=== PATIENT | female | born 1960 | race Caucasian/White ===

== ENCOUNTER 2017-06-19 08:35 | Outpatient (CLI) | payer MEDICARE, MEDICAID | END 2017-06-19 08:36 | disposition home or self-care (01) | LOC: BICRAD 08:35 | PROVIDERS: ATTEND Allergy & Immunology | DX: R05 Cough (principal); I51.7 Cardiomegaly | CPT/HCPCS: 71046 ==

== ENCOUNTER 2017-07-18 10:54 | Outpatient (CLI) | payer MEDICARE, MEDICAID | END 2017-07-18 10:55 | disposition home or self-care (01) | LOC: BICMAMMO 10:54 | PROVIDERS: ATTEND Family Medicine | DX: Z12.31 Encounter for screening mammogram for malignant neoplasm of breast (principal); R92.1 Mammographic calcification found on diagnostic imaging of breast; Z80.3 Family history of malignant neoplasm of breast | CPT/HCPCS: 77063; 77067 ==

== ENCOUNTER 2017-10-23 08:12 | Outpatient (CLI) | payer MEDICARE, MEDICAID | END 2017-10-23 08:13 | disposition home or self-care (01) | LOC: BICCT 08:12 | PROVIDERS: ATTEND Anesthesiology Pain Medicine | DX: M48.062 Spinal stenosis, lumbar region with neurogenic claudication (principal); M47.896 Other spondylosis, lumbar region; M99.83 Other biomechanical lesions of lumbar region | CPT/HCPCS: 72131 ==

== ENCOUNTER 2017-12-03 19:30 | Outpatient (CLI) | payer MEDICARE, MEDICAID | END 2017-12-03 19:31 | disposition home or self-care (01) | LOC: SLEEPLAB 19:30 | PROVIDERS: ATTEND Family Medicine | DX: G47.33 Obstructive sleep apnea (adult) (pediatric) (principal); J44.9 Chronic obstructive pulmonary disease, unspecified; G47.10 Hypersomnia, unspecified; I10 Essential (primary) hypertension; R06.83 Snoring; G47.61 Periodic limb movement disorder; E66.9 Obesity, unspecified; Z68.41 Body mass index [BMI] 40.0-44.9, adult | CPT/HCPCS: 95811 ==

== ENCOUNTER 2017-12-13 14:53 | Observation (INO) | payer MEDICARE, OTHER ==
[2017-12-13] MEDS ORDERED: Nitroglycerin 2% Ointment 1 INCH/1 GM Packet ONE (15:11)
[2017-12-13 15:28] LABS: #Basophils 0.1 thou/uL (0.0-0.2); #Eosinphils 0.1 thou/uL (0.0-0.7); #Lymphocytes 3.4 thou/uL (1.20-3.40); #Monocytes 0.6 thou/uL (0.11-0.59); %Basophils 0.7 % (0.0-1.0); %Eosinophils 1.8 % (0.0-10.0); %Lymphocytes 41.7 % (21.0-51.0); %Monocytes 6.9 % (0.0-10.0); Hemoglobin 13.1 g/dL (12.0-16.0); Mean Corpuscular HGB CONC 32.3 g/dL (32.0-36.0); Mean Corpuscular Hemoglobin 29.3 pg (27.0-31.0); Mean Corpuscular Volume 90.9 fL (78.0-98.0); Mean Platelet Volume 8.6 fL (7.4-10.4); Platelet Count 162 thou/uL (130-400); RBC Distribution Width 13.6 % (11.5-14.5); Red Blood Cell (RBC) Count 4.46 mill/uL (4.20-5.40); White Blood Cell (WBC) Count 8.2 thou/uL (4.8-10.8)
--- NOTE | 2017-12-13 15:32 | RAD ---
PORTABLE AP CHEST: Date: 12/13/17 HISTORY: Chest pain. COMPARISON: 04/12/14. FINDINGS: Dual lead left subclavian cardiac pacemaking device remains in place and unchanged in position. Posts urgical changes related to median sternotomy are again noted. Cardiac silhouette is magnified by proj ection, but is at the upper limits of normal to borderline enlarged. Pulmonary vasculature is within normal limits. Lungs are clear. There has been no interval change from prior study. IMPRESSION: 1. No acute cardiopulmonary process. 2. Upper limits of normal to borderline cardiomegaly. POS: [facility]
[2017-12-13 15:51] LABS: ALT (SGPT) 26 U/L (8-55); AST (SGOT) 19 U/L (5-34); Alkaline Phosphatase 47 U/L (40-150); Anion Gap 11 mmol/L (10-20); BUN (Urea Nitrogen) 11 mg/dL (9.8-20.1); Bilirubin, Total 0.3 mg/dL (0.2-1.2); CK (CPK) 201 U/L (29-168); Calc. Creatinine Clearance 0 mL/min (70-130); Calcium 9.6 mg/dL (7.8-10.44); Carbon Dioxide 23 mmol/L (22-29); Chloride 108 mmol/L (98-107); Estimated GFR-MDRD 70; Globulin 2.5 g/dL (2.4-3.5); Glucose 149 mg/dL (70-105); Lipase 17 U/L (8-78); Potassium 4.3 mmol/L (3.5-5.1); Protein, Total 6.5 g/dL (6.0-8.3); Sodium 138 mmol/L (136-145)
[2017-12-13 15:55] LABS: CKMB 3.3 ng/mL (0-6.6); Troponin I Less than 0.010 ng/mL (< 0.028)
[2017-12-13] MEDS ORDERED: Acetaminophen 500 MG TAB ONE (16:26)
--- NOTE | 2017-12-13 17:08 | PDOC.FPRHP ---
- History of Present Illness Chief Complaint: chest pain History of Present Illness: Patient is a 57YOF w/ a PMH significant for CAD s/p CABGx2 w/ pacemaker placement in 2004, HTN, DMII, and PVD who presented to the ED with a CC of chest pain that she states began yesterday morning around 0930. The patient stated that after she returned home from her morning walk, about 2 hours later she began to experience a sharp pain in the left side of her chest that she described to be 9/10 in severity and non-radiating without any specific aggravating factors. She endorse some associated clamminess but denied any SOB, N/V or diaphoresis. She stated that she took 2 sublingual nitroglycerin tabs that she had at home which relieved her pain. The pain did not return until this AM around the same time and that patient took sublingual nitroglycerin again but required 3 tabs to relieve her pain. Then, later this morning around 11:00, the pain returned once again but was not relieved with 2 sublingual nitroglycerin tablets so she decided to call EMS. The patient reported that on the way to the hospital she was given nitroglycerin spray which did relieve her pain. She was then given topical nitroglycerin once she arrived to the ED and denies any further pain since her arrival. ED Course: Patient was given 1,000mg of PO tylenol, nitro paste, and 500mL of NS. - Allergies/Adverse Reactions Allergies Allergy/AdvReac Type Severity Reaction Status Date / Time carbamazepine [From Tegretol] Allergy Intermediate Rash Verified 10/17/16 12:02 clopidogrel bisulfate Allergy Intermediate EYE Verified 10/17/16 12:02 [From Plavix] SWELLING enoxaparin sodium Allergy Intermediate EYE Verified 10/17/16 12:02 [From Lovenox] SWELLING ibuprofen Allergy Intermediate EYE Verified 10/17/16 12:02 SWELLING rivaroxaban [From Xarelto] Allergy Intermediate RECTAL Verified 10/17/16 12:02 BLEEDING Sulfa (Sulfonamide Allergy Intermediate EYE Verified 10/17/16 12:02 Antibiotics) SWELLING - Home Medications Medication Instructions Recorded Confirmed Type Fenofibrate [Tricor] 48 mg PO QAM 05/05/13 12/13/17 History Gabapentin [Neurontin] 800 mg PO BID 05/05/13 12/13/17 History Levothyroxine Sodium [Synthroid] 50 mcg PO QPM 05/05/13 12/13/17 History Lisinopril [Zestril] 40 mg PO BID 05/05/13 12/13/17 History metFORMIN HCl 1,000 mg PO BID-WM 05/05/13 12/13/17 History Atorvastatin Calcium [Lipitor] 40 mg PO HS #30 tab 05/06/13 12/13/17 Rx Esomeprazole Magnesium [NexIUM] 40 mg PO BID 04/06/14 12/13/17 History Azelastine/Fluticasone [Dymista 1 spray EA NARE BID 07/04/15 12/13/17 History Nasal [place]] Bupropion HCl [buPROPion HCl XL] 150 mg PO QAM 07/04/15 12/13/17 History Diltiazem HCl [Diltiazem 24Hr CD] 240 mg PO QPM 07/04/15 12/13/17 History Oxybutynin Chloride [Oxybutynin 15 mg PO QPM 07/04/15 12/13/17 History Chloride ER] Carvedilol [Coreg] 25 mg PO BID 10/17/16 12/13/17 History Cholecalciferol (Vitamin D3) 400 unit PO DAILY 10/17/16 12/13/17 History [Vitamin D3] - History PMHx: CAD s/p CABG x 2, HLD, HTN, PVD, GERD, DMII, ALYSSA on Cpap, vitamin D deficiency, hypothyroidism, depression, OA, morbid obesity, CKDIII, IBS PSHx: hysterectomy, , cholecystectomy, CABG x 2, R breast biopsy FHx: Mom- DM, [place], pancreatic CA Father- CVA, DM, alcoholic Brother- DM Sister- DM & from renal CA Grandfather- DM Social: Former smoker of 2-3 ppd x 30 years. Quit ~1 year ago. Denies any drug use. Admits to occasional EtOH use. Lives at home alone in [place]. - Review of Systems General: reports: weight/appetite/sleep changes, night sweats. denies: fever/ chills, fatigue Eyes: denies: eye pain, vision changes ENT: denies: nasal congestion, rhinorrhea Respiratory: reports: cough. denies: congestion, shortness of breath, exercise intolerance Cardiovascular: reports: chest pain. denies: edema Gastrointestinal: denies: nausea, vomiting, diarrhea, constipation Genitourinary: reports: other (- hematuria). denies: dysuria Skin: reports: lesions. denies: rashes, itching Musculoskeletal: denies: swelling, arthritis/arthralgias Neurological: denies: numbness, syncope, seizure Psychological: reports: depression. denies: anxiety - Vital signs BP: 145/77 HR: 65 RR: 18 Tmax: 98.5F Pox: 94% on RA Wt: 105.06kg - Physical Exam Constitutional: NAD, awake, alert and oriented, well developed HEENT: normocephalic and atraumatic, PERRLA, conjunctiva clear, no scleral icterus, grossly normal vision, grossly normal hearing, MMM, oropharynx clear Neck: supple, FROM, no LAD Chest: no-tender to palpation Heart: RRR, normal S1/S2, pulses present, no edema, other (3/6 systolic murmur) Lungs: CTAB, no respiratory distress, good air movement, no rales/rhonchi, no wheezing, no retractions Abdomen: soft, non-tender, bowel sounds present, no masses/distention Musculoskeletal: normal structure, ROM grossly normal Neurological: no focal deficit, CN II-XII intact, normal sensation Skin: good turgor, no jaundice, other (~3cm tender, palpable mass just below skin under left rib cage; no surrounding edema or erythema noted) Heme/Lymphatic: no unusual bruising or bleeding, no purpura Psychiatric: normal mood and affect, good judgment and insight, intact recent and remote memory FMR H&P: Results - Labs Result Diagrams: 12/13/17 15:22 12/13/17 15:22 Lab results: WBC 8.2 thou/uL (4.8-10.8) 12/13/17 15:22 Hgb 13.1 g/dL (12.0-16.0) 12/13/17 15:22 Hct 40.6 % (36.0-47.0) 12/13/17 15:22 MCV 90.9 fL (78.0-98.0) 12/13/17 15:22 Plt Count 162 thou/uL (130-400) 12/13/17 15:22 Neutrophils % 49.0 % (42.0-75.0) 12/13/17 15:22 Sodium 138 mmol/L (136-145) 12/13/17 15:22 Potassium 4.3 mmol/L (3.5-5.1) 12/13/17 15:22 Chloride 108 mmol/L (98-107) H 12/13/17 15:22 Carbon Dioxide 23 mmol/L (22-29) 12/13/17 15:22 BUN 11 mg/dL (9.8-20.1) 12/13/17 15:22 Creatinine 0.84 mg/dL (0.6-1.1) 12/13/17 15:22 Glucose 149 mg/dL (70-105) H 12/13/17 15:22 Calcium 9.6 mg/dL (7.8-10.44) 12/13/17 15:22 Total Bilirubin 0.3 mg/dL (0.2-1.2) 12/13/17 15:22 AST 19 U/L (5-34) 12/13/17 15:22 ALT 26 U/L (8-55) 12/13/17 15:22 Alkaline Phosphatase 47 U/L (40-150) 12/13/17 15:22 Creatine Kinase 201 U/L (29-168) H 12/13/17 15:22 CK-MB (CK-2) 3.3 ng/mL (0-6.6) 12/13/17 15:22 B-Natriuretic Peptide 346.5 pg/mL (0-100) H 12/13/17 15:22 Serum Total Protein 6.5 g/dL (6.0-8.3) 12/13/17 15:22 Albumin 4.0 g/dL (3.5-5.0) 12/13/17 15:22 Lipase 17 U/L (8-78) 12/13/17 15:22 - EKG Interpretation EKG: Paced rhythm w/ rate of 69bpm w/ occasional PVCs. - Radiology Interpretation Chest x-ray Status: image reviewed by me, report reviewed by me Additional comment: Moderate cardiomegaly w/o any significant cardiopulmonary findings FMR H&P: A/P - Problem List (1) Unstable angina Current Visit: Yes Status: Suspected (2) CAD (coronary artery disease) Current Visit: No Status: Chronic Code(s): I25.10 - ATHSCL HEART DISEASE OF [place] CORONARY ARTERY W/O ANG PCTRS Qualifiers: Coronary Disease-Associated Artery/Lesion type: bypass graft [place] vs. transplanted heart: [place] heart (3) CKD (chronic kidney disease) stage 3, GFR 30-59 ml/min Current Visit: No Status: Chronic (4) Hypertension Current Visit: No Status: Chronic Code(s): I10 - ESSENTIAL (PRIMARY) HYPERTENSION (5) Hyperlipemia Current Visit: No Status: Chronic Code(s): E78.5 - HYPERLIPIDEMIA, UNSPECIFIED (6) IBS (irritable bowel syndrome) Current Visit: No Status: Chronic (7) Obstructive sleep apnea Current Visit: No Status: Chronic Code(s): G47.33 - OBSTRUCTIVE SLEEP APNEA (ADULT) (PEDIATRIC) (8) T2DM (type 2 diabetes mellitus) Current Visit: No Status: Chronic Qualifiers: Diabetes mellitus complication status: with kidney complications Diabetes mellitus complication detail: with chronic kidney disease Chronic kidney disease stage: stage 3 (moderate) (9) Depression Current Visit: Yes Status: Acute Code(s): F32.9 - MAJOR DEPRESSIVE DISORDER , SINGLE EPISODE, UNSPECIFIED (10) Hypothyroidism Current Visit: Yes Status: Acute Code(s): E03.9 - HYPOTHYROIDISM, UNSPECIFIED (11) Peripheral vascular disease Current Visit: Yes Status: Acute Code(s): I73.9 - PERIPHERAL VASCULAR DISEASE, UNSPECIFIED (12) Vitamin D deficiency Current Visit: Yes Status: Acute Code(s): E55.9 - VITAMIN D DEFICIENCY, UNSPECIFIED (13) Morbid obesity Current Visit: Yes Status: Acute Code(s): E66.01 - MORBID (SEVERE) OBESITY DUE TO EXCESS CALORIES - Plan 57YOF w/ PMH significant for CAD s/p CABG x 2, HTN, DMII, and PVD who presented to the ED w/ a CC of typical chest pain suspicious for unstable angina. 1. typical chest pain suspicious for unstable angina vs. esophageal spasm: - pain seems to be typical based on the patient's history and the fact that it was relieved with nitro; however, patient has a h/o GERD and requires nexium BID so there is a possibility that patient was experiencing esophageal spasm as this condition is also relieved with nitro - ECG did not show any changes concerning for ACS. Initial troponin level WNL. Will continue to trend. - BNP slightly elevated from prior admission at just over 300 but no concern for CHF exacerbation based on patient's clinical status and exam. - Patient has a HEART score of 6 so will make NPO after midnight and hold BB for stress test in the AM. Will consult cardiology PRN based on these results. - Will order PO nitro for chest pain and d/c the topical nitro once patient gets to the floor. - Will continue to monitor overnight on telemetry and will obtain another ECG should patient's chest pain return. - FLP pending for the AM. Will also get a TSH and Mg. 2. CAD s/p CABG x2: - Aware. Started on 325mg ASA QD. - Will resume home meds. 3. HTN: - Aware, will resume home meds. 4. non-insulin dependent DMII: - Aware, will resume home meds. - Will order mild SSI to use PRN. - Will get ACHS accuchecks as well. 5. PVD: - Aware, will resume home statin therapy. 6. HLD: - Aware, will resume home statin therapy. 7. hypothyroidism: - Will resume home meds. - Will order an AM TSH as well. 8. ALYSSA on CPAP: - Will order RT to bring CPAP for patient for tonight. 9. vit D deficiency: - Will resume home meds. 10. IBS: - Will resume home meds. 11. Depression: - Will resume home meds. 12. CKDIII: - Aware, will resume home HTN meds. 13. GERD: - Aware, will resume home meds. FMR H&P: Upper Level - Pertinent history 57 yo WF with PMH CAD s/p 2 vessel CABG in 2004, HTN, DM2, and prior smoker. Presents with intermittent chest pain occurring at rest that is relieved by nitroglycerin for past 2 days. States pain is not associated with activity and has taken several walks without initiation of chest pain. Reports history of GERD and takes medication daily. Reports medication compliance. ER: Nitro spray en route, Nitro paste, APAP, NS 500 mL. - Pertinent findings Vitals: BP 142/87 Pulse 62, resp 18, O2 94% on RA. GEN: NAD CV: RRR 3/6 systolic murmur loudest over upper chest. Lung: CTA-B normal effort Labs: cardiac enzymes negative. BNP 350. CXR: No acute processes EKG: paced rhythm, rate 69, occasional PVC, nonspecific ST changes. - Plan Date/Time: 12/13/17 0437 I, Akira Vargas MD, have evaluated this patient and agree with findings/plan as outlined by wedding planning internship resident. Pertinent changes/additions are listed here. 1. Typical Chest Pain r/o ACS: dDx includes ACS and esophageal spasm. Check mag and TSH. Trend trops x3. NM stress test in the morning. HEART score 6. Cardiology consultation pending result. hold beta mireille and NPO after midnight. PRN nitro. 2. Elevated BNP: Does not appear clinically fluid overloaded. 3. GERD: home meds 4. DM: Home meds, ACHS accuchecks, mild SSI 5. HTN: home meds, PRNs available 6. CAD: med rec, needs to be on ASA, high intensity statin, beta mireille, and ACEi/ARB. PPx: SCD Diet: HH, CC, NPO after midnight CODE: full Dispo: Obs, tele, <2 midnights Attending Addendum - Attending Addendum Date/Time: 12/13/17 077 I personally evaluated the patient and discussed the management with Dr. Boss/ Alicia. I agree with the History, Examination, Assessment and Plan documented above with any addition or exceptions noted below. Patient with history of CAD s/p CABG, T2DM, KCD, Pacemaker placement, and Hx PE presenting with 2 days of worsening chest pain. She reports that yesterday after a walk she began having chest pain (after termination of walk), denies shortness of breath with the pain. However, her pain went away with Nitroglycerin. This morning, she experienced the same symptoms after walk, felt clammy as well, and pain relieved with Nitro again. However, this afternoon she had recurrence that did not improve with Nitro. Reports no history of similar pain. On exam, her vital signs are stable. Her labs are negative at this time. EKG shows paced rhythm but no ST segment changes. She has a 3/6 systolic murmur auscultated which she indicates is chronic. Patient to be admitted for cardiac rule out due to typical chest pain presentation mildly suspicious for unstable angina. Trend troponins, repeat EKG, monitor on tele, and plan for chemical stress test in AM. Repeat EKG and trop as needed if chest pain recurs or worsens. Nitro PRN. Continue chronic meds for her chronic conditions.
[2017-12-13 18:39] LABS: Troponin I Less than 0.010 ng/mL (< 0.028)
[2017-12-13] MEDS ORDERED: Nitroglycerin 0.4 MG TAB (25 Tab Bottle) PO PRN (19:39)
[2017-12-13] MEDS ORDERED: Dextrose 5% in Water 1,000 ML IV PRN (19:39)
[2017-12-13] MEDS ORDERED: Dextrose 50% Abboject 50 ML SYRINGE SLOW IVP PRN ×2 (19:39)
[2017-12-13] MEDS ORDERED: HumaLOG 300 UNITS/3 ML VIAL SC PRN (19:39)
[2017-12-13] MEDS ORDERED: Triamcinolone 0.1% Cream 15 GM TUBE TOP PRN (19:39)
[2017-12-13] MEDS ORDERED: traMADol HCl 50 MG TAB PO PRN (19:39)
[2017-12-13] MEDS ORDERED: Polyethylene Glycol 3350 17 GM Packet PO PRN (19:39)
[2017-12-13] MEDS: Lisinopril 20 MG TAB PO SCH (20:43)
[2017-12-13] MEDS: Oxybutynin ER 5 MG TAB PO SCH (20:43)
[2017-12-13] MEDS: Atorvastatin Calcium 40 MG TAB PO SCH (20:44)
[2017-12-13] MEDS: Gabapentin 400 MG CAP PO SCH (20:44)
[2017-12-13] MEDS: Azelastine 137 MCG/Spray 30 ML NS SCH (20:48)
[2017-12-13] MEDS ORDERED: Non-Formulary Item 1 EACH (Azelastine/Fluticasone [Dymista Nasal Spray] 1 SPRAY) EA NARE SCH (21:00)
[2017-12-13] MEDS ORDERED: Estrogens, Conjugated 30 GM TUBE VAG SCH (21:00)
[2017-12-13] MEDS ORDERED: Levothyroxine Sodium 50 MCG TAB PO SCH (21:00)
[2017-12-13] MEDS ORDERED: Fluticasone Propionate Nasal Spray 16 gm Bottle NASAL SCH (21:00)
[2017-12-13 22:17] LABS: Troponin I Less than 0.010 ng/mL (< 0.028)
[2017-12-14 05:07] LABS: Cardiac Risk 3.8 (Less than 4.5); Magnesium 1.7 mg/dL (1.6-2.6)
--- NOTE | 2017-12-14 05:32 | PDOC.FM ---
- Subjective Subjective: 57yo female with pmh of CAD s/p CABGx2, HTN, DMII, and PVD who presented with typical chest pain suspicious for unstable angina. No overnight events. Pt with no concerns. Currently chest pain free. Denies SOB, diaphoresis, nausea or palpitations. - Objective MAR Reviewed: Yes Vital Signs & Weight: Vital Signs (12 hours) Temp Pulse Resp BP Pulse Ox 12/14/17 02:45 64 18 142/75 H 94 L 12/13/17 20:44 62 170/77 H 12/13/17 20:43 170/77 H 12/13/17 19:32 97.8 F 62 18 170/77 H 94 L Weight Weight 108.998 kg Result Diagrams: 12/13/17 15:22 12/13/17 15:22 <Tamra Redd - Last Filed: 12/14/17 10:44> - Objective Vital Signs & Weight: Vital Signs (12 hours) Temp Pulse Resp BP BP Pulse Ox 12/14/17 08:37 181/79 H 12/14/17 08:06 96 16 94 L 12/14/17 07:15 98.6 F 71 16 181/79 H 93 L 12/14/17 02:45 64 18 142/75 H 94 L Weight Weight 108.998 kg I&O: 12/13/17 12/14/17 12/15/17 06:59 06:59 06:59 Output Total 1000 Balance -1000 Result Diagrams: 12/13/17 15:22 12/13/17 15:22 <Epifanio Sanches - Last Filed: 12/14/17 10:48> Phys Exam - Physical Examination Constitutional: NAD Neck: supple Respiratory: no wheezing, clear to auscultation bilateral Cardiovascular: RRR IV/ systolic murmur radiating to carotids Gastrointestinal: soft, non-tender, positive bowel sounds Musculoskeletal: no edema, pulses present Psychiatric: normal affect, A&O x 3 Skin: cap refill <2 seconds <Tamra Redd - Last Filed: 12/14/17 10:44> Dx/Plan (1) Depression Code(s): F32.9 - MAJOR DEPRESSIVE DISORDER, SINGLE EPISODE, UNSPECIFIED Status : Acute (2) Hypothyroidism Code(s): E03.9 - HYPOTHYROIDISM, UNSPECIFIED Status: Acute (3) Morbid obesity Code(s): E66.01 - MORBID (SEVERE) OBESITY DUE TO EXCESS CALORIES Status: Acute (4) Peripheral vascular disease Code(s): I73.9 - PERIPHERAL VASCULAR DISEASE, UNSPECIFIED Status: Acute (5) Vitamin D deficiency Code(s): E55.9 - VITAMIN D DEFICIENCY, UNSPECIFIED Status: Acute (6) Unstable angina Status: Suspected (7) CAD (coronary artery disease) Code(s): I25.10 - ATHSCL HEART DISEASE OF [place] CORONARY ARTERY W/O ANG PCTRS Status: Chronic Qualifiers: Coronary Disease-Associated Artery/Lesion type: bypass graft [place] vs. transplanted heart: [place] heart (8) Hyperlipemia Code(s): E78.5 - HYPERLIPIDEMIA, UNSPECIFIED Status: Chronic (9) Hypertension Code(s): I10 - ESSENTIAL (PRIMARY) HYPERTENSION Status: Chronic (10) IBS (irritable bowel syndrome) Status: Chronic (11) Obstructive sleep apnea Code(s): G47.33 - OBSTRUCTIVE SLEEP APNEA (ADULT) (PEDIATRIC) Status: Chronic (12) T2DM (type 2 diabetes mellitus) Status: Chronic Qualifiers: Diabetes mellitus complication status: with kidney complications Diabetes mellitus complication detail: with chronic kidney disease Chronic kidney disease stage: stage 3 (moderate) - Plan Plan: 57yo female with pmh of CAD s/p CABGx2, HTN, DMII, and PVD who presented with typical chest pain suspicious for unstable angina. Typical chest pain, unstable angina vs esophageal spasm - Pain seems to be typical based on the patient's history and the fact that it was relieved with nitro; however, patient has a h/o GERD and requires nexium BID so there is a possibility that patient was experiencing esophageal spasm as this condition is also relieved with nitro - ECG with no ST changes - Trops neg x3 - BNP slightly elevated from prior admission at just over 300 but no concern for CHF exacerbation based on patient's clinical status and exam. - HEART score: 6 - Holding BB for stress test this AM. May consult cardiology based on these results. - Continue PO nitro for CP - ECG if chest pain returns - Mg/TSH wnl - FLP with elevated TGs CAD s/p CABG x2 - Continue ASA 325mg - Continue home meds HTN - Continue home meds - Holding Coreg Non-insulin dependent DMII - Aware, will resume home meds - Will order mild SSI to use PRN - Will get ACHS accuchecks as well PVD - Continue home statin HLD - Continue home statin Hypothyroidism - Continue home meds - TSH wnl ALYSSA on CPAP - Continue CPAP when sleeping Vit D deficiency - Continue home meds IBS - Continue home meds Depression - Continue home meds CKDIII - Initial Cr .84 - Continue home meds GERD - Continue home meds <Tamra Redd - Last Filed: 12/14/17 10:44> Attending Addendum - Attending Addendum Date/Time: 12/14/17 1047 I personally evaluated the patient and discussed the management with Dr. Redd. I agree with the History, Examination, Assessment and Plan documented above with any addition or exceptions noted below. Patient here ruled out for ACS. Concern for cadiac type chest pain. She is awaiting stress test and further mgmt per those results. <Epifanio Sanches - Last Filed: 12/14/17 10:48>
[2017-12-14] MEDS: Levothyroxine Sodium 50 MCG TAB PO SCH (05:44)
[2017-12-14] MEDS: Mometasone/Formoterol 120 PUFF INHALER INH SCH ×2 (08:06→18:15)
[2017-12-14] MEDS: metFORMIN 500 MG TAB PO SCH ×3 (08:36→17:11)
[2017-12-14] MEDS: Aspirin 325 MG TAB PO SCH (08:36)
[2017-12-14] MEDS: Lubiprostone 24 MCG CAP PO SCH (08:36)
[2017-12-14] MEDS: Azelastine 137 MCG/Spray 30 ML NS SCH ×2 (08:37→21:21)
[2017-12-14] MEDS: Citalopram 20 MG TAB PO SCH (08:37)
[2017-12-14] MEDS: Bupropion 150 MG XL TAB PO SCH (08:37)
[2017-12-14] MEDS: Gabapentin 400 MG CAP PO SCH ×2 (08:37→21:18)
[2017-12-14] MEDS: Lisinopril 20 MG TAB PO SCH ×2 (08:37→21:18)
[2017-12-14] MEDS: Cholecalciferol (Vitamin D3) 400 UNITS TAB PO SCH (08:37)
[2017-12-14] MEDS: Fenofibrate 48 MG TAB PO SCH (08:37)
[2017-12-14] MEDS: Multivit, Therapeutic 1 TAB PO SCH (08:38)
[2017-12-14] MEDS: Loratadine 10 MG TAB PO SCH (08:38)
[2017-12-14] MEDS ORDERED: Regadenoson 0.4 MG/5 ML SYRINGE ONE (13:46)
[2017-12-14] MEDS: Oxybutynin ER 5 MG TAB PO SCH (21:18)
[2017-12-14] MEDS: Atorvastatin Calcium 40 MG TAB PO SCH (21:18)
[2017-12-14] MEDS: Carvedilol 25 MG TAB PO SCH (21:19)
--- NOTE | 2017-12-15 05:15 | PDOC.FM ---
- Subjective Subjective: 57yo female with pmh of CAD s/p CABGx2, HTN, DMII, and PVD who presented with typical chest pain suspicious for unstable angina. No overnight events. Pt with no concerns. Up taking a shower this AM. Voiding and stooling. Chest pain free. Denies SOB, abdominal pain, n/v. - Objective MAR Reviewed: Yes Vital Signs & Weight: Vital Signs (12 hours) Temp Pulse Resp BP BP Pulse Ox 12/15/17 01:52 67 18 148/80 H 98 12/14/17 21:18 177/84 H 12/14/17 21:17 73 177/84 H 12/14/17 21:05 98.1 F 71 20 177/84 H 94 L 12/14/17 18:15 93 18 98 Weight Weight 108.998 kg I&O: 12/13/17 12/14/17 12/15/17 06:59 06:59 06:59 Intake Total 1680 Output Total 1000 Balance -1000 1680 Result Diagrams: 12/13/17 15:22 12/13/17 15:22 <Tamra Redd - Last Filed: 12/15/17 06:49> - Objective Vital Signs & Weight: Vital Signs (12 hours) Temp Pulse Resp BP BP Pulse Ox 12/15/17 09:47 172/75 H 12/15/17 07:42 98.4 F 81 20 172/75 H 94 L 12/15/17 01:52 67 18 148/80 H 98 Weight Weight 108.998 kg I&O: 12/14/17 12/15/17 12/16/17 06:59 06:59 06:59 Intake Total 1680 360 Output Total 1000 Balance -1000 1680 360 Result Diagrams: 12/13/17 15:22 12/13/17 15:22 <Epifanio Sanches - Last Filed: 12/15/17 10:11> Phys Exam - Physical Examination Constitutional: NAD Respiratory: no wheezing, clear to auscultation bilateral Cardiovascular: RRR systolic murmur radiates to carotids Gastrointestinal: soft, non-tender, positive bowel sounds Musculoskeletal: no edema, pulses present Psychiatric: normal affect, A&O x 3 <Tamra Redd - Last Filed: 12/15/17 06:49> Dx/Plan (1) Depression Code(s): F32.9 - MAJOR DEPRESSIVE DISORDER, SINGLE EPISODE, UNSPECIFIED Status : Acute (2) Hypothyroidism Code(s): E03.9 - HYPOTHYROIDISM, UNSPECIFIED Status: Acute (3) Morbid obesity Code(s): E66.01 - MORBID (SEVERE) OBESITY DUE TO EXCESS CALORIES Status: Acute (4) Peripheral vascular disease Code(s): I73.9 - PERIPHERAL VASCULAR DISEASE, UNSPECIFIED Status: Acute (5) Vitamin D deficiency Code(s): E55.9 - VITAMIN D DEFICIENCY, UNSPECIFIED Status: Acute (6) Unstable angina Status: Suspected (7) CAD (coronary artery disease) Code(s): I25.10 - ATHSCL HEART DISEASE OF [place] CORONARY ARTERY W/O ANG PCTRS Status: Chronic Qualifiers: Coronary Disease-Associated Artery/Lesion type: bypass graft [place] vs. transplanted heart: [place] heart (8) Hyperlipemia Code(s): E78.5 - HYPERLIPIDEMIA, UNSPECIFIED Status: Chronic (9) Hypertension Code(s): I10 - ESSENTIAL (PRIMARY) HYPERTENSION Status: Chronic (10) IBS (irritable bowel syndrome) Status: Chronic (11) Obstructive sleep apnea Code(s): G47.33 - OBSTRUCTIVE SLEEP APNEA (ADULT) (PEDIATRIC) Status: Chronic (12) T2DM (type 2 diabetes mellitus) Status: Chronic Qualifiers: Diabetes mellitus complication status: with kidney complications Diabetes mellitus complication detail: with chronic kidney disease Chronic kidney disease stage: stage 3 (moderate) - Plan Plan: 57yo female with pmh of CAD s/p CABGx2, HTN, DMII, and PVD who presented with typical chest pain suspicious for unstable angina. Typical chest pain, unstable angina vs esophageal spasm - Pain seems to be typical based on the patient's history and the fact that it was relieved with nitro; however, patient has a h/o GERD and requires nexium BID so there is a possibility that patient was experiencing esophageal spasm as this condition is also relieved with nitro - ECG with no ST changes - Trops neg x3 - BNP slightly elevated from prior admission at just over 300 but no concern for CHF exacerbation based on patient's clinical status and exam. - HEART score: 6 - Holding BB for second day of stress test this AM. May consult cardiology based on these results. - Continue PO nitro for CP - ECG if chest pain returns - Mg/TSH wnl - FLP with elevated TGs CAD s/p CABG x2 - Continue ASA 325mg - Continue home meds HTN - Continue home meds - Holding Coreg Non-insulin dependent DMII - Aware, will resume home meds - Will order mild SSI to use PRN - Will get ACHS accuchecks as well PVD - Continue home Atorvastatin HLD - Continue home Atorvastatin Hypothyroidism - Continue home levothyroxine - TSH wnl ALYSSA on CPAP - Continue CPAP when sleeping Vit D deficiency - Continue home Vit D3 IBS - Continue home meds Depression - Continue home citalopram, wellbutrin CKDIII - Initial Cr .84 - Continue home meds GERD - Continue home meds DVT ppx: SCDs Code Status: FULL <Tamra Redd - Last Filed: 12/15/17 06:49> Attending Addendum - Attending Addendum Date/Time: 12/15/17 1011 I personally evaluated the patient and discussed the management with Dr. Rded. I agree with the History, Examination, Assessment and Plan documented above with any addition or exceptions noted below. Patient doing well. No current chest pain. Awaiting results of stress test and will likely discharge home if normal. Further mgmt pending result. <Epifanio Sanches - Last Filed: 12/15/17 10:11>
[2017-12-15] MEDS: Levothyroxine Sodium 50 MCG TAB PO SCH (06:02)
[2017-12-15] MEDS: Mometasone/Formoterol 120 PUFF INHALER INH SCH (07:38)
[2017-12-15] MEDS: Azelastine 137 MCG/Spray 30 ML NS SCH (09:46)
[2017-12-15] MEDS: Aspirin 325 MG TAB PO SCH (09:46)
[2017-12-15] MEDS: Lubiprostone 24 MCG CAP PO SCH (09:46)
[2017-12-15] MEDS: metFORMIN 500 MG TAB PO SCH (09:46)
[2017-12-15] MEDS: Loratadine 10 MG TAB PO SCH (09:47)
[2017-12-15] MEDS: Bupropion 150 MG XL TAB PO SCH (09:47)
[2017-12-15] MEDS: Carvedilol 25 MG TAB PO SCH (09:47)
[2017-12-15] MEDS: Multivit, Therapeutic 1 TAB PO SCH (09:47)
[2017-12-15] MEDS: Lisinopril 20 MG TAB PO SCH (09:47)
[2017-12-15] MEDS: Cholecalciferol (Vitamin D3) 400 UNITS TAB PO SCH (09:47)
[2017-12-15] MEDS: Gabapentin 400 MG CAP PO SCH (09:48)
[2017-12-15] MEDS: Fenofibrate 48 MG TAB PO SCH (09:48)
[2017-12-15] MEDS: Citalopram 20 MG TAB PO SCH (09:48)
--- NOTE | 2017-12-15 10:06 | NM ---
NUCLEAR MEDICINE CARDIAC STRESS WITH EJECTION FRACTION AND WALL MOTION: HISTORY: Chest pain. Hypertension and coronary artery disease. COMPARISON: 05/06/13. TECHNIQUE: The patient was administered 31 mCi of technetium-99m sestamibi for rest imaging and 27.4 mCi of te chnetium-99m sestamibi for stress imaging. Cardiac gating performed. FINDINGS: There appears to be a fixed defect involving the inferior wall from the mid portion to the base of th e left ventricle. This distribution is similar to the previous examination. There does not appear to be any reversibility. There is global hypokinesis. Ejection fraction is 48%. Previously, the ejection fraction was 35%. IMPRESSION: 1. Fixed defect in the inferior wall. 2. No evidence of reversibility. 3. Global hypokinesis with ejection fraction of 48%. POS: [facility]
[2017-12-15 11:55] VITALS: BP 165/74; TEMP 98.3
--- NOTE | 2017-12-16 04:48 | DIS-2 ---
DATE OF ADMISSION: 12/13/2017 DATE OF DISCHARGE: 12/15/2017 RESIDENT: Tamra Redd M.D., PGY1. ADMITTING ATTENDING: Epifanio Sanches M.D. DISCHARGE ATTENDING: Epifanio Sanches M.D. CONSULTATIONS: None. PROCEDURES: 1. Chest x-ray showing no acute cardiopulmonary process, upper limits of normal to borderline cardiomegaly. 2. Nuclear stress test showing fixed deficit in the inferior wall. No evidence of reversibility. Global hypokinesis with ejection fraction of 48%. PRIMARY DIAGNOSIS: Typical chest pain. SECONDARY DIAGNOSES: 1. Coronary artery disease status post coronary artery bypass graft x2. 2. Hypertension. 3. Noninsulin dependent diabetes type 2. 4. Peripheral vascular disease. 5. Hyperlipidemia. 6. Hypothyroidism. 7. Obstructive sleep apnea, on CPAP. 8. Vitamin D deficiency. 9. Irritable bowel syndrome. 10. Depression. 11. Chronic kidney disease stage 3. 12. Gastroesophageal reflux disease. DISCHARGE MEDICATIONS: 1. Albuterol sulfate 2 puffs q.4 hours p.r.n. 2. Aspirin 325 mg daily. 3. Atorvastatin 40 mg at bedtime. 4. Dymista nasal spray 1 spray each naris b.i.d. 5. Bupropion 150 mg q.a.m. 6. Carvedilol 25 mg b.i.d. 7. Vitamin D3 of 400 units p.o. daily. 8. Citalopram 20 mg daily. 9. Diltiazem 240 mg at bedtime. 10. Nexium 40 mg b.i.d. 11. Premarin cream 1 gram vaginal as directed 1-3 times per week. 12. TriCor 48 mg p.o. q.a.m. 13. Gabapentin 800 mg b.i.d. 14. Levothyroxine 50 mcg at bedtime. 15. Lisinopril 40 mg daily. 16. Claritin 10 mg daily. 17. Metformin 1000 mg b.i.d. 18. Mometasone/formoterol two puffs b.i.d. 19. Multivitamin 1 tab daily. 20. Nitroglycerin 0.4 mg tablet sublingual every 5 minutes p.r.n. 21. Oxybutynin 15 mg at bedtime. 22. Pilocarpine hydrochloride 5 mg b.i.d. 23. MiraLax 17 grams p.o. daily. DISCONTINUED MEDICATIONS: None. HISTORY OF PRESENT ILLNESS AND HOSPITAL COURSE: Ms. Flores is a 57-year-old female with a past medical history significant for CAD status post CABG x2, pacemaker placement in 2004, hypertension, type 2 diabetes, and PVD, presenting with chest pain that started the morning prior. There were multiple episodes associated with clamminess and resolved with nitroglycerin, but prior to presentation to the ED, pain was not relieved with nitroglycerin. She received nitroglycerin spray by EMS and was chest pain free on arrival to the ED. Troponins were negative x3. EKG showed no ST segment changes. Her BNP was slightly elevated prior to her last admission, but we were not concerned about congestive heart failure exacerbation based on patient's clinical exam. Her fasting lipid panel was notable for elevated triglycerides. She underwent a 2- day stress test that showed no reversible changes. Of note, her stress test did show evidence of her [place] prior revealing fixed deficit in the inferior wall and global hypokinesis with an EF of 48%. For her type 2 diabetes, was managed with mild sliding scale insulin. It was noted that her fasting blood sugars were elevated in the mid to high 200s. This can be further managed as an outpatient. For her chronic conditions of CAD, hypertension, PVD, hyperlipidemia, hypothyroidism, ALYSSA, vitamin D deficiency, IBS, depression, chronic kidney disease 3, and GERD, these were stable on her home medications throughout the course of her stay. DISPOSITION: Stable. DISCHARGE INSTRUCTIONS: 1. Location: Home. 2. Diet: Heart healthy, consistent diabetic diet. 3. Activity: No restrictions. 4. Followup: Follow up with PCP within 3 days and inside phone sales within 2-3 weeks. DEE DEE
--- NOTE | 2017-12-20 09:28 | STRESS ---
Acquisition Time: 2017-12-14 09:24:56 Total Exercise Time: 00:01:00 Test Indications: CHEST PAIN Medications: Protocol: LEXISCAN Max HR: 078 BPM 48% of Pred: 162 BPM Max BP: 140/070 mmHG Max Work Load: 1.0 METS THE PATIENT WAS INJECTED WITH LEXISCAN. SHE DID NOT DEVELOP CHEST PAIN. THERE WAS NO SIGNIFICANT ST DEPRESSION. AWAIT NUCLEAR IMAGES FOR DEFINITIVE DIAGNOSIS. Confirmed by RUSSELL PARADA ([id number]), rewrite editor NATASHA TOMPKINS ([id number]) on 12/20/2017 9:28:10 AM Referred By: Confirmed By:RUSSELL PARADA
--- NOTE | 2017-12-21 11:31 | EKG ---
Test Reason : CHESTPAIN Blood Pressure : / mmHG Vent. Rate : 069 BPM Atrial Rate : 053 BPM P-R Int : 000 ms QRS Dur : 158 ms QT Int : 490 ms P-R-T Axes : 000 -43 191 degrees QTc Int : 525 ms Demand pacemaker; interpretation is based on intrinsic rhythm Wide QRS rhythm with occasional Premature ventricular complexes Left axis deviation Left ventricular hypertrophy with QRS widening and repolarization abnormality Inferior infarct , age undetermined Abnormal ECG Confirmed by AMANDEEP MOULTON, CHINMAY ([id number]), acquisitions editor ABDIRIZAK NOBLE ([id number]) on 12/21/2017 11:30:52 AM Referred By: Confirmed By:CHINMAY BERNSTEIN MD
== END 2017-12-15 12:24 | disposition home or self-care (01) ==
LOC: ERS 14:53 → 2SW 16:14
PROVIDERS: ADMIT Student in an Organized Health Care Education/Training Program; ATTEND Student in an Organized Health Care Education/Training Program
DX: R07.9 Chest pain, unspecified (principal); I25.10 Atherosclerotic heart disease of native coronary artery without angina pectoris; E11.51 Type 2 diabetes mellitus with diabetic peripheral angiopathy without gangrene; E78.5 Hyperlipidemia, unspecified; E03.9 Hypothyroidism, unspecified; G47.33 Obstructive sleep apnea (adult) (pediatric); E55.9 Vitamin D deficiency, unspecified; N18.3 Chronic kidney disease, stage 3 (moderate); E11.22 Type 2 diabetes mellitus with diabetic chronic kidney disease; I12.9 Hypertensive chronic kidney disease with stage 1 through stage 4 chronic kidney disease, or unspecified chronic kidney disease; K21.9 Gastro-esophageal reflux disease without esophagitis; F32.9 Major depressive disorder, single episode, unspecified; E66.01 Morbid (severe) obesity due to excess calories; Z95.5 Presence of coronary angioplasty implant and graft; Z79.82 Long term (current) use of aspirin; Z79.899 Other long term (current) drug therapy; Z79.84 Long term (current) use of oral hypoglycemic drugs; Z68.41 Body mass index [BMI] 40.0-44.9, adult
CPT/HCPCS: 71045; 78452; 80053; 80061; 82550; 82553; 82962 ×3; 83690; 83735; 83880; 84443; 84484 ×2; 85025; 93005; 93017; 94640 ×2; 94664; 94760; 96360; 99285; A9500; G0378; 36415; 36416; J2785

== ENCOUNTER 2018-02-08 10:16 | Emergency (ER) | payer MEDICARE, OTHER ==
[2018-02-08] MEDS ORDERED: Ketorolac Tromethamine 60 MG/2 ML VIAL ONE (10:35)
== END 2018-02-08 11:20 | disposition home or self-care (01) ==
LOC: ERS 10:16
DX: M54.5 Low back pain (principal); E11.9 Type 2 diabetes mellitus without complications; E78.5 Hyperlipidemia, unspecified; I10 Essential (primary) hypertension; E66.9 Obesity, unspecified; F32.9 Major depressive disorder, single episode, unspecified; F17.210 Nicotine dependence, cigarettes, uncomplicated
CPT/HCPCS: 96372; J1885

== ENCOUNTER 2018-05-12 10:11 | Outpatient (CLI) | payer MEDICARE, OTHER ==
--- NOTE | 2018-05-12 12:10 | CT ---
TEMPORAL BONE CT: History: Bilateral hearing loss. Technique: Axial images were obtained with coronal reconstructed images performed. FINDINGS: The visualized portions of the sinuses are well aerated. The mastoid air cells are well aerated. The external auditory canals are unremarkable. Temporal bones: The right and left middle ears, including the hypo, epi, and mesotympanum are well ae rated. Middle ear ossicles are intact. No definite evidence of erosive changes or soft tissues lesions. No definite evidence of cholesteatom a seen. The right and left vestibule, semicircular canals and cochlea bilaterally are unremarkable. Internal auditory canals are unremarkable. IMPRESSION: Normal bilateral temporal bone CT. POS: [facility]
== END 2018-05-12 10:12 | disposition home or self-care (01) ==
LOC: BICCT 10:11
PROVIDERS: ATTEND Specialist
DX: H90.5 Unspecified sensorineural hearing loss (principal)
CPT/HCPCS: 70480

== ENCOUNTER 2018-07-25 12:15 | Outpatient (CLI) | payer MEDICARE, MEDICAID ==
[2018-07-25 13:35] LABS: Hemoglobin 11.1 g/dL (12.0-16.0)
[2018-07-25 13:52] LABS: ALT (SGPT) 22 U/L (8-55); AST (SGOT) 16 U/L (5-34); Albumin 4.2 g/dL (3.5-5.0); Alkaline Phosphatase 55 U/L (40-150); Anion Gap 13 mmol/L (10-20); BUN (Urea Nitrogen) 10 mg/dL (9.8-20.1); Bilirubin, Total 0.7 mg/dL (0.2-1.2); Calc. Creatinine Clearance 0 mL/min (70-130); Calcium 10.1 mg/dL (7.8-10.44); Carbon Dioxide 25 mmol/L (22-29); Chloride 108 mmol/L (98-107); Estimated GFR-MDRD 78; Globulin 2.7 g/dL (2.4-3.5); Glucose 100 mg/dL (70-105); Potassium 4.2 mmol/L (3.5-5.1); Protein, Total 6.9 g/dL (6.0-8.3); Sodium 142 mmol/L (136-145)
== END 2018-07-25 12:16 | disposition home or self-care (01) ==
LOC: LABBT 12:15
PROVIDERS: ATTEND Internal Medicine Cardiovascular Disease
DX: Z01.812 Encounter for preprocedural laboratory examination (principal)
CPT/HCPCS: 80053; 85014; 85018

== ENCOUNTER 2018-08-11 05:42 | Day surgery (SDC) | payer MEDICARE, MEDICAID ==
[2018-07-25 13:56] VITALS: BMI 39.8
[2018-08-11] MEDS ORDERED: Midazolam HCl 2 mg/2 ml Vial ONE (07:25)
[2018-08-11] MEDS ORDERED: Fentanyl 100 MCG/2 ML VIAL ONE (07:26)
[2018-08-11] MEDS ORDERED: Iopamidol 370 76% 50 ML VIAL FS ONE (11:48)
[2018-08-11] MEDS ORDERED: Iopamidol 370 76% 100 ML VIAL ONE (11:48)
== END 2018-08-11 16:03 | disposition home or self-care (01) ==
LOC: CCL 05:42
PROVIDERS: ATTEND Internal Medicine Cardiovascular Disease
PROC: 4A023N7 Measurement of Cardiac Sampling and Pressure, Left Heart, Percutaneous Approach (ICD-10-PCS; principal; 2018-08-11)
PROC: B2111ZZ Fluoroscopy of Multiple Coronary Arteries using Low Osmolar Contrast (ICD-10-PCS; 2018-08-11)
DX: I25.10 Atherosclerotic heart disease of native coronary artery without angina pectoris (principal); I25.2 Old myocardial infarction; I35.0 Nonrheumatic aortic (valve) stenosis; I10 Essential (primary) hypertension; E11.9 Type 2 diabetes mellitus without complications; G47.33 Obstructive sleep apnea (adult) (pediatric); E03.9 Hypothyroidism, unspecified; M19.90 Unspecified osteoarthritis, unspecified site; K21.9 Gastro-esophageal reflux disease without esophagitis; F32.9 Major depressive disorder, single episode, unspecified; I49.5 Sick sinus syndrome; E66.9 Obesity, unspecified; Z68.39 Body mass index [BMI] 39.0-39.9, adult; Z87.891 Personal history of nicotine dependence; Z86.73 Personal history of transient ischemic attack (TIA), and cerebral infarction without residual deficits; Z79.82 Long term (current) use of aspirin; Z79.84 Long term (current) use of oral hypoglycemic drugs; Z79.899 Other long term (current) drug therapy; Z88.2 Allergy status to sulfonamides; Z88.8 Allergy status to other drugs, medicaments and biological substances; Z95.0 Presence of cardiac pacemaker; Z95.1 Presence of aortocoronary bypass graft
CPT/HCPCS: 76942; 93461; 93561; 99152; 99153; C1769; J1644; J2250; J3010; Q9967

== ENCOUNTER 2018-09-08 07:14 | Outpatient (CLI) | payer MEDICARE, MEDICAID ==
--- NOTE | 2018-09-08 09:25 | CT ---
CT Chest W WO Con History: Aortic valve stenosis Comparison: CT angiogram chest 2015 Findings: On the noncontrast portion examination there is no intramural hematoma. Prior CABG. Dense c oronary artery calcifications. Similar appearance of the bilateral hilar fullness likely sequelae of distention of the perivenous pe ricardial sleeves. Dense calcifications of all 3 cusps of the aortic valve. Size as follows: Aortic valve: 2.4 cm. Sinuses of Valsalva: 3 cm sinotubular junction: 2.4 cm Midascending aorta: 3.5 cm Transverse aorta: 2.8 cm Proximal descending thoracic aorta: 2.7 cm Diaphragmatic hiatus: 2.4 cm No intimal flap. Left atrial appendage is patient. Mild thinning of the left ventricular apex. Mild peripheral pleural scarring. 4 mm nodule within the medial basal left lower lobe. This nodule is unchanged. No pneumothorax. No effusion. No acute osseous abnormality. Impression: 1. No aortic aneurysm. Size as above. 2. Patent left atrial appendage. 3. Mildly dilated pulmonary trunk measuring 3.5 cm suggesting pulmonary arterial hypertension. 4. Mild fluid distention of the perivenous pericardial recesses. 5. Dense calcifications of the aortic valve.
[2018-09-08] MEDS ORDERED: ISOVUE-370 76%-LOCM 1 ML ONE (09:51)
== END 2018-09-08 07:15 | disposition home or self-care (01) ==
LOC: BICCT 07:14
PROVIDERS: ATTEND Thoracic Surgery (Cardiothoracic Vascular Surgery)
DX: I35.0 Nonrheumatic aortic (valve) stenosis (principal); I25.10 Atherosclerotic heart disease of native coronary artery without angina pectoris
CPT/HCPCS: 71270

== ENCOUNTER 2018-09-09 07:36 | Outpatient (CLI) | payer MEDICARE, MEDICAID ==
--- NOTE | 2018-09-12 21:10 | EKG ---
Test Reason : Blood Pressure : / mmHG Vent. Rate : 067 BPM Atrial Rate : 067 BPM P-R Int : 180 ms QRS Dur : 126 ms QT Int : 416 ms P-R-T Axes : 066 044 128 degrees QTc Int : 439 ms Electronic atrial pacemaker Non-specific intra-ventricular conduction block Cannot rule out Anterior infarct , age undetermined Abnormal ECG When compared with ECG of 13-DEC-2017 15:05, Electronic atrial pacemaker has replaced Wide QRS rhythm Confirmed by Cory SOTO ([id number]) on 09/12/2018 9:10:11 PM Referred By: TERRA Confirmed By:Cory SOTO
== END 2018-09-09 07:37 | disposition home or self-care (01) ==
LOC: LABBT 07:36
PROVIDERS: ATTEND Thoracic Surgery (Cardiothoracic Vascular Surgery)
DX: Z01.818 Encounter for other preprocedural examination (principal); I35.0 Nonrheumatic aortic (valve) stenosis
CPT/HCPCS: 93005; 93010

== ENCOUNTER 2018-09-09 09:15 | Inpatient (IN) | payer MEDICARE, MEDICAID ==
[2018-09-09 10:16] LABS: Hemoglobin 11.7 g/dL (12.0-16.0); Mean Corpuscular HGB CONC 30.9 g/dL (32.0-36.0); Mean Corpuscular Hemoglobin 24.4 pg (27.0-31.0); Mean Corpuscular Volume 79.2 fL (78.0-98.0); Mean Platelet Volume 9.8 fL (7.4-10.4); Platelet Count 171 thou/uL (130-400); White Blood Cell (WBC) Count 7.2 thou/uL (4.8-10.8)
[2018-09-09 10:22] LABS: PTT 31.9 SEC (22.9-36.1); Prothrombin Time 13.5 SEC (12.0-14.7)
[2018-09-09 10:42] LABS: Anion Gap 11 mmol/L (10-20); BUN (Urea Nitrogen) 12 mg/dL (9.8-20.1); Calc. Creatinine Clearance 0 mL/min (70-130); Calcium 9.9 mg/dL (7.8-10.44); Carbon Dioxide 27 mmol/L (22-29); Chloride 105 mmol/L (98-107); Estimated GFR-MDRD 81; Glucose 167 mg/dL (70-105); Potassium 4.1 mmol/L (3.5-5.1); Sodium 139 mmol/L (136-145)
[2018-09-10] MEDS ORDERED: Vancomycin HCl 1.5 GM in Sodium Chloride 0.9% 250 ML 300 ML IVPB SCH (06:30)
[2018-09-10] MEDS ORDERED: CEFAZOLIN 2 GM in Premix Bag 1 BAG IVPB SCH (06:30)
[2018-09-10] MEDS ORDERED: Heparin 10,000 UNITS/1 ML VIAL 30,000 UNITS in Sodium Chloride 0.9% 1,000 ML FS SCH (06:45)
[2018-09-10] MEDS ORDERED: Bupivacaine HCl 0.5%/Epinephrine 1:200,000/PF 30 ml Vial ONE (06:45)
[2018-09-10] MEDS ORDERED: Dexamethasone 4 mg/ml Vial ONE (06:45)
[2018-09-10] MEDS ORDERED: Albumin 5% 500 ML ONE (06:45)
[2018-09-10] MEDS ORDERED: Vecuronium 10 MG VIAL ONE ×2 (06:50→13:49)
[2018-09-10] MEDS ORDERED: Midazolam HCl 5 mg/5 ml Vial ONE (06:50)
[2018-09-10] MEDS ORDERED: Dexmedetomidine 200 MCG/2 ML VIAL ONE (06:50)
[2018-09-10] MEDS ORDERED: Norepinephrine 4 MG/4 ML VIAL ONE (06:50)
[2018-09-10] MEDS ORDERED: Fentanyl 250 MCG/5 ML VIAL ONE (06:50)
[2018-09-10] MEDS ORDERED: Chloroprocaine HCl/PF 20 ML VIAL ONE (06:51)
[2018-09-10] MEDS ORDERED: Milrinone 10 MG/10 ML VIAL ONE (06:51)
[2018-09-10] MEDS ORDERED: Midazolam HCl 2 mg/2 ml Vial ONE (07:12)
[2018-09-10] MEDS ORDERED: Insulin Regular 300 UNITS/3 ML VIAL ONE (08:23)
[2018-09-10] MEDS ORDERED: Ondansetron PF 4 MG/2 ML Vial IVP PRN (11:45)
[2018-09-10] MEDS ORDERED: D5 1/2 NS w/20 mEq KCL 1,000 ML IV SCH (11:45)
[2018-09-10] MEDS ORDERED: Magnesium 2 GM/50 ML 2 GM in Premix Bag 1 BAG IVPB SCH (11:45)
[2018-09-10] MEDS ORDERED: Acetaminophen 325 MG TAB PO PRN (11:45)
[2018-09-10] MEDS ORDERED: HYDROcodone/Acetaminophen 5/325 mg Tablet PO PRN (11:45)
[2018-09-10] MEDS ORDERED: Promethazine HCl 25 MG/ML VIAL IM PRN (11:45)
[2018-09-10] MEDS ORDERED: Hetastarch 6% 500 ML 500 ML IVPB PRN (11:45)
[2018-09-10] MEDS ORDERED: Bisacodyl 5 MG TAB PO PRN (11:45)
[2018-09-10] MEDS ORDERED: Potassium Chloride 20 MEQ/100 ML PREMIX BAG IVPB PRN (11:45)
[2018-09-10] MEDS ORDERED: Mag-Al 1200 mg/1200 mg/30 ML UDCUP PO PRN (11:45)
[2018-09-10] MEDS ORDERED: Post-Op Insulin Drip Protocol IVPB ONE (11:45)
[2018-09-10] MEDS ORDERED: Bisacodyl 10 MG SUPP PR PRN (11:45)
[2018-09-10] MEDS ORDERED: Nitroglycerin 50 MG/250 ML BOT 250 ML IVPB PRN (11:45)
[2018-09-10] MEDS ORDERED: Guaifenesin DM 100-10/5 ML UDCUP PO PRN (11:45)
[2018-09-10] MEDS ORDERED: Fentanyl 100 MCG/2 ML VIAL SLOW IVP PRN (11:45)
[2018-09-10] MEDS ORDERED: Norepinephrine 8 MG/0.9% NS 250 ML IVPB PRN (11:45)
[2018-09-10] MEDS ORDERED: D5 1/2 NS w/20 mEq KCL 1,000 ML ONE (11:54)
[2018-09-10] MEDS ORDERED: Morphine 4 MG/ML VIAL ONE (12:08)
[2018-09-10 12:23] LABS: Actual Bicarbonate (HCO3a) 23.5 mEq/L (22-28); Base Excess (BEa) -2.8 mEq/L (-2.0 to +3.0); CO2 Tension 47.5 mmHg (35.0-45.0); Calcium, Ionized 1.08 mmol/L (1.12-1.30); Carboxyhemoglobin (COHb) 1.5 gm% (0.0-3.0); Hemoglobin (Hb) 10.1 g/dL (12.0-16.0); Potassium - ABG Lab 4.01 mmol/L (3.70-5.30); pH, Arterial 7.31 (7.35-7.45)
[2018-09-10 12:24] LABS: ALV-art Gradient 254.425 (0-20); Puncture Site ALINE
[2018-09-10 12:25] LABS: Hemoglobin 9.5 g/dL (12.0-16.0); Mean Corpuscular HGB CONC 30.8 g/dL (32.0-36.0); Mean Corpuscular Hemoglobin 24.5 pg (27.0-31.0); Mean Corpuscular Volume 79.7 fL (78.0-98.0); Mean Platelet Volume 9.4 fL (7.4-10.4); Platelet Count 158 thou/uL (130-400); RBC Distribution Width 15.7 % (11.5-14.5); Red Blood Cell (RBC) Count 3.89 mill/uL (4.20-5.40); White Blood Cell (WBC) Count 20.6 thou/uL (4.8-10.8)
[2018-09-10] MEDS ORDERED: HUMULIN R 100 UNITS in Sodium Chloride 0.9% 100 ML IVPB SCH (12:28)
[2018-09-10] MEDS ORDERED: Dextrose 50% Abboject 50 ML SYRINGE SLOW IVP PRN (12:28)
[2018-09-10] MEDS ORDERED: Insulin Regular 300 UNITS/3 ML VIAL SC PRN (12:28)
[2018-09-10] MEDS ORDERED: Dextrose 5% in Water 1,000 ML IV PRN (12:28)
[2018-09-10 12:32] LABS: INR-International Normal Ratio 1.3; Prothrombin Time 16.7 SEC (12.0-14.7)
--- NOTE | 2018-09-10 12:32 | RAD ---
EXAM: CHEST ONE VIEW: 09/10/18 HISTORY: Postop open heart. Evidence for postop open heart and valvular replacement changes. Endotracheal tube and right subclavi an catheter is in place. Monitor leads overlie the chest. Mild prominence of the mediastinum and card iac silhouette since prior study of 12/13/17. No confluent pneumonia or pneumothorax. IMPRESSION: Minimal cardiomegaly with fullness of the mediastinum following recent postoperative changes. No pneu mothorax or other acute process. Continued short term follow-up. POS: [facility]
[2018-09-10 12:33] LABS: PTT 44.4 SEC (22.9-36.1)
[2018-09-10] MEDS ORDERED: Norepinephrine 8 MG in Dextrose 5% in Water 242 ML IVPB PRN (12:43)
[2018-09-10 12:48] LABS: Anion Gap 10 mmol/L (10-20); BUN (Urea Nitrogen) 13 mg/dL (9.8-20.1); Calc. Creatinine Clearance 164 mL/min (70-130); Calcium 7.6 mg/dL (7.8-10.44); Carbon Dioxide 24 mmol/L (22-29); Chloride 111 mmol/L (98-107); Estimated GFR-MDRD Greater than 90; Glucose 129 mg/dL (70-105); Potassium 4.1 mmol/L (3.5-5.1); Sodium 141 mmol/L (136-145)
[2018-09-10 13:06] LABS: Band 11 % (5-11); Hypochromia SLIGHT = 6-15 cells (100X) (0-5/hpf); Lymphocytes 21 % (21-51); MDiff Complete? YES; Metamyelocyte 1 % (0-0); Microcytosis SLIGHT = 6-15 cells (100X) (0-5/hpf); Monocytes 3 % (0-10); Neutrophil 64 % (42-75); Ovalocytes SLIGHT = 2-5 cells (100X) (0-1/hpf); Polychromasia SLIGHT = 2-3 cells (100X) (0-2/hpf)
[2018-09-10] MEDS ORDERED: Nitroglycerin 50 MG/250 ML BOT ONE (13:49)
[2018-09-10] MEDS ORDERED: Sodium Bicarb 50 MEQ/50 ML VIAL ONE (13:49)
[2018-09-10] MEDS ORDERED: Aminocaproic Acid 5 GM/20 ML VIAL ONE (13:49)
[2018-09-10] MEDS ORDERED: Glycopyrrolate 0.2 MG/ML 5 ML SYRINGE ONE (13:49)
[2018-09-10] MEDS ORDERED: Potassium Chloride 60 MEQ/30 ML VIAL ONE (13:49)
[2018-09-10] MEDS ORDERED: Thrombin 5000 UNITS/5 ML VIAL ONE (13:49)
[2018-09-10] MEDS ORDERED: Calcium Chloride 1 GM/10 ML Abboject SYRINGE ONE (13:49)
[2018-09-10] MEDS ORDERED: Protamine Sulfate 250 MG/25 ML VIAL ONE (13:49)
[2018-09-10] MEDS ORDERED: Heparin 30,000 units/30 ml VIAL ONE (13:49)
[2018-09-10] MEDS ORDERED: Lidocaine 2% PF 100 mg/5 ml Syringe ONE (13:49)
[2018-09-10] MEDS ORDERED: Magnesium 5 GM/10 ML VIAL ONE (13:49)
[2018-09-10] MEDS ORDERED: Mannitol 12.5 GM/50 ML ONE (13:49)
[2018-09-10] MEDS ORDERED: PROPOFOL 200 MG/20 ML VIAL ONE (13:49)
[2018-09-10] MEDS: CEFAZOLIN 2 GM in Premix Bag 1 BAG IVPB SCH ×2 (14:04→22:03)
[2018-09-10 15:03] LABS: Actual Bicarbonate (HCO3a) 24.7 mEq/L (22-28); Base Excess (BEa) -1.3 mEq/L (-2.0 to +3.0); CO2 Tension 47.7 mmHg (35.0-45.0); Calcium, Ionized 1.04 mmol/L (1.12-1.30); Hemoglobin (Hb) 8.8 g/dL (12.0-16.0); O2 Tension (PaO2) 78.8 mmHg (80.0-100.0); Potassium - ABG Lab 3.93 mmol/L (3.70-5.30); pH, Arterial 7.33 (7.35-7.45)
[2018-09-10] MEDS: Fentanyl 100 MCG/2 ML VIAL SLOW IVP PRN (16:00)
[2018-09-10 16:04] LABS: Puncture Site ALINE
[2018-09-10 16:05] LABS: ALV-art Gradient 146.775 (0-20)
[2018-09-10] MEDS: HYDROcodone/Acetaminophen 5/325 mg Tablet PO PRN ×2 (17:31→21:30)
--- NOTE | 2018-09-10 17:36 | OP ---
DATE OF PROCEDURE: 09/10/2018 PREOPERATIVE DIAGNOSES: 1. Coronary artery disease, status post coronary artery bypass grafting x2 utilizing saphenous vein graft to OM and distal right coronary. 2. Hypertension. 3. Bipolar disorder. 4. Morbid obesity. 5. Aortic stenosis. POSTOPERATIVE DIAGNOSES: 1. Coronary artery disease, status post coronary artery bypass grafting x2 utilizing saphenous vein graft to OM and distal right coronary. 2. Hypertension. 3. Bipolar disorder. 4. Morbid obesity. 5. Aortic stenosis. PROCEDURES PERFORMED: 1. Redo sternotomy. 2. Aortic valve replacement with #21 Magna bioprosthetic valve. CO-SURGEON: Evans Moise MD ANESTHESIA: General endotracheal. ANESTHESIOLOGIST: Claudy Singh MD. PUMP TIME: 83 minutes. CROSS-CLAMP TIME: 50 minutes. LOW CORE TEMPERATURE: 34.1 degrees Celsius. SUPERVISING NURSE: Bernadette Bhardwaj. DRAINS: 24-Mongolian chest tubes x2. DRIPS: None. TRANSFUSIONS: None. DESCRIPTION OF PROCEDURE: After consent was obtained, the patient was brought to the operating room, placed in supine position on the operating table. Appropriate central line was placed and general endotracheal anesthesia was induced. Chest and legs were prepped and draped in usual sterile fashion. The previous sternal incision was opened. Wires were divided. Midline was marked with electrocautery. Sternum was re-divided with oscillating saw. Wires were then removed. The posterior table of the sternum was then divided with heavy-curved George scissors. Posterior table of the sternum was freed from the surrounding tissues. Alvaro retractor was placed. Tissue over the innominate vein was divided, so no tension was placed on the innominate vein. Dissection was begun at the level of the diaphragm. Once the diaphragm was localized, the diaphragm was followed to the right until we encounter pericardium and the right-sided saphenous vein graft. This was followed all the way around the heart to the aorta. The aorta was exposed all the way up distal to the previous cannulation site. The graft to the right side was mobilized off the surface of the atrium. The aortic and atrial cannulation sutures were placed. The patient was systemically heparinized. After adequate heparinization, aortic and atrial cannulation were performed. The patient was placed on cardiopulmonary bypass. The remainder of the dissection of the aorta was completed, allowing for cross-clamping of the aorta. There was sufficient room proximal to the graft proximal anastomoses to allow for aortotomy. The aortic cross-clamp was applied, and antegrade sanguineous cardioplegic arrest was obtained. 1 L of antegrade cold [place] cardioplegia was given. Topical cold solution was used. CO2 was then infused in the pericardial well for the remainder of the procedure A transverse hockey stick aortotomy was performed. The valve was inspected. It was a 3-leaflet valve that was heavily calcified at the hinge points. There was also calcium on the anterior wall of the aorta. The aortic valve was debrided and the anulus was decalcified. The calcification on the anterior wall of the aorta which was exophytic was removed. The valve measured as a 21 Magna. The valve was brought into the operative field and washed. Pledgeted 2-0 Ethibond sutures were placed in the anulus. The suture was then passed through the sewing ring of the valve, and the valve was seated. Valve was secured with Cor-Knots. Valve was seated nicely. The aortotomy was then closed in a two-layer running fashion with pledgeted 4-0 prolene suture. De-airing maneuvers were then performed both to the aortic vent and a left-sided superior pulmonary vein vent. After adequate de-airing had been performed, cross-clamp was removed with the patient in Trendelenburg position. The aortic suture line was hemostatic. The patient was then warmed and weaned from cardiopulmonary bypass. After resumption of sinus rhythm, good hemodynamics, temperature greater than 36.5, bypass was discontinued. Transfusion was given. Decannulation was performed and pursestring suture secured. Protamine was administered. The left ventricular sump drain was removed and its pursestring suture secured. The aortic root vent was removed and its pursestring suture secured. After adequate hemostasis had been obtained in the mediastinum, 24- Mongolian chest tubes x2 were placed in mediastinum. The sternum was treated with vancomycin paste. Sternum was closed with #7 wire. The sternum was treated with platelet rich plasma, wires twisted. Wounds irrigated, treated with platelet poor plasma, and closed in multiple layers. Needle, sponge, and instrument counts were all reported as correct at the end of the procedure. The patient tolerated the procedure well. Transferred to the intensive care in stable, but critical condition. Job ID: [id number] [facility]
[2018-09-10] MEDS: Vancomycin HCl 1.5 GM in Sodium Chloride 0.9% 250 ML 300 ML IVPB SCH (17:38)
[2018-09-10 17:54] LABS: Hemoglobin 8.4 g/dL (12.0-16.0)
[2018-09-10 18:07] LABS: Potassium 4.1 mmol/L (3.5-5.1)
[2018-09-10] MEDS: Mometasone/Formoterol 120 PUFF INHALER INH SCH (18:18)
[2018-09-10] MEDS: Atorvastatin Calcium 40 MG TAB PO SCH (19:47)
[2018-09-10] MEDS: Gabapentin 400 MG CAP PO SCH (19:48)
[2018-09-10] MEDS: Levothyroxine Sodium 50 MCG TAB PO SCH (19:48)
[2018-09-10] MEDS: AZELASTINE EA NARE SCH (19:52)
[2018-09-10] MEDS: FLUTICASONE EA NARE SCH (19:52)
[2018-09-10] MEDS ORDERED: Non-Formulary Item 1 EACH (Azelastine/Fluticasone [Dymista Nasal Spray] 1 SPRAY) EA NARE SCH (21:00)
[2018-09-10] MEDS ORDERED: Famotidine/PF 20 mg/2ml Vial SLOW IVP SCH (21:00)
[2018-09-10] MEDS: hydrALAZINE 20 MG/ML VIAL SLOW IVP PRN (23:17)
[2018-09-11] MEDS: HYDROcodone/Acetaminophen 5/325 mg Tablet PO PRN ×4 (02:47→20:35)
[2018-09-11 03:41] LABS: Anion Gap 6 mmol/L (10-20); BUN (Urea Nitrogen) 13 mg/dL (9.8-20.1); Calc. Creatinine Clearance 157 mL/min (70-130); Carbon Dioxide 26 mmol/L (22-29); Chloride 110 mmol/L (98-107); Estimated GFR-MDRD Greater than 90; Glucose 113 mg/dL (70-105); Potassium 3.6 mmol/L (3.5-5.1); Sodium 138 mmol/L (136-145)
[2018-09-11] MEDS: Vancomycin HCl 1.5 GM in Sodium Chloride 0.9% 250 ML 300 ML IVPB SCH (04:57)
[2018-09-11 05:06] LABS: #Lymphocytes 0.9 thou/uL (1.20-3.40); #Monocytes 0.5 thou/uL (0.11-0.59); #Neutrophils 6.7 thou/uL (1.40-6.50); %Basophils 0.2 % (0.0-1.0); %Eosinophils 0.5 % (0.0-10.0); %Lymphocytes 10.6 % (21.0-51.0); %Monocytes 6.3 % (0.0-10.0); %Neutrophils 82.4 % (42.0-75.0); Anisocytosis SLIGHT = 6-15 cells (100X) (0-5/hpf); Elliptocytes SLIGHT = 2-5 cells (100X) (0-1/hpf); Hemoglobin 7.9 g/dL (12.0-16.0); MDiff Complete? YES; Mean Corpuscular HGB CONC 30.5 g/dL (32.0-36.0); Mean Corpuscular Hemoglobin 24.5 pg (27.0-31.0); Mean Corpuscular Volume 80.1 fL (78.0-98.0); Platelet Count 83 thou/uL (130-400); Platelet Morphology Comment Appears Decreased; RBC Distribution Width 15.6 % (11.5-14.5); Red Blood Cell (RBC) Count 3.24 mill/uL (4.20-5.40); White Blood Cell (WBC) Count 8.2 thou/uL (4.8-10.8)
[2018-09-11] MEDS ORDERED: Furosemide 20 MG/2 ML VIAL SLOW IVP SCH (06:30)
[2018-09-11] MEDS: CEFAZOLIN 2 GM in Premix Bag 1 BAG IVPB SCH (06:35)
--- NOTE | 2018-09-11 07:41 | RAD ---
AP VIEW CHEST: HISTORY: Open heart surgery. AP view chest is obtained on 09/11/2018. Comparison made to previous exam from 09/10/2018. FINDINGS: Sternotomy wires seen. Intracardiac pacing device is in place. Cardiomegaly noted. Pulmonar y vascular congestion seen. The patient has been extubated. Right subclavian central line is seen. IMPRESSION: Interval extubation of the patient. Transcribed Date/Time: 09/11/2018 8:06 AM
[2018-09-11] MEDS: Mometasone/Formoterol 120 PUFF INHALER INH SCH ×2 (07:48→18:18)
[2018-09-11] MEDS: Bupropion 150 MG XL TAB PO SCH (08:16)
[2018-09-11] MEDS: Aspirin 325 MG TAB PO SCH (08:16)
[2018-09-11] MEDS: Cholecalciferol (Vitamin D3) 400 UNITS TAB PO SCH (08:16)
[2018-09-11] MEDS: Fenofibrate 48 MG TAB PO SCH (08:17)
[2018-09-11] MEDS: Citalopram 20 MG TAB PO SCH (08:17)
[2018-09-11] MEDS: Gabapentin 400 MG CAP PO SCH ×2 (08:17→20:36)
[2018-09-11] MEDS: Magnesium 2 GM/50 ML 2 GM in Premix Bag 1 BAG IVPB SCH (08:17)
[2018-09-11] MEDS: Fish Oil 1,000 MG CAP PO SCH (08:17)
[2018-09-11] MEDS: AZELASTINE EA NARE SCH ×2 (08:19→20:38)
[2018-09-11] MEDS: FLUTICASONE EA NARE SCH ×2 (08:19→20:38)
[2018-09-11] MEDS: hydrALAZINE 20 MG/ML VIAL SLOW IVP PRN (08:22)
[2018-09-11] MEDS: Carvedilol 25 MG TAB PO SCH ×2 (08:32→20:37)
--- NOTE | 2018-09-11 08:54 | RAD ---
XR Chest 1 View Portable History: Open-heart surgery Comparison: Radiograph same day Findings: A.M. Central venous catheter is in place with tip at the inferior SVC. Heart size is enlarg ed. No pneumothorax. Cardiac device is similar. Mild pulmonary venous congestion. Mild atelectasis. Impression: Similar examination of the chest.
[2018-09-11 09:39] VITALS: BMI 38.2
[2018-09-11] MEDS ORDERED: Nitroglycerin 0.4 MG TAB (25 Tab Bottle) SL PRN (13:43)
[2018-09-11] MEDS ORDERED: Artificial Tears 18 DROP/0.9 ML EA EYE PRN (13:43)
[2018-09-11] MEDS ORDERED: Zolpidem Tartrate 5 MG TAB PO PRN (13:43)
[2018-09-11] MEDS ORDERED: Bisacodyl 10 MG SUPP PR PRN (13:43)
[2018-09-11] MEDS ORDERED: Bisacodyl 5 MG TAB PO PRN (13:43)
[2018-09-11] MEDS ORDERED: Guaifenesin DM 100-10/5 ML UDCUP PO PRN (13:43)
[2018-09-11] MEDS ORDERED: Mag-Al 1200 mg/1200 mg/30 ML UDCUP PO PRN (13:43)
[2018-09-11] MEDS ORDERED: diphenhydrAMINE 25 MG CAP PO PRN (13:43)
[2018-09-11] MEDS ORDERED: Mineral Oil ENEMA PR PRN (13:43)
[2018-09-11] MEDS ORDERED: Milk Of Magnesia 30 ML UDCUP PO PRN (13:43)
[2018-09-11] MEDS ORDERED: Dextrose 50% Abboject 50 ML SYRINGE SLOW IVP PRN (14:05)
[2018-09-11] MEDS ORDERED: Dextrose 5% in Water 1,000 ML IV PRN (14:05)
[2018-09-11] MEDS ORDERED: Insulin Regular 300 UNITS/3 ML VIAL SC PRN (14:05)
[2018-09-11] MEDS: Furosemide 40 MG TAB PO SCH (14:23)
--- NOTE | 2018-09-11 18:01 | CON ---
DATE OF CONSULTATION: REASON FOR CONSULTATION: Assist with postoperative care. HISTORY OF PRESENT ILLNESS: Ms. Flores is a 58-year-old woman, seen and evaluated in the past. She has a history of CAD, status post bypass surgery and severe aortic stenosis. She recently underwent aortic valve replacement. She is seen in the postoperative period and appears to be doing very well. She is currently not on pressor agents. PAST MEDICAL HISTORY: CAD, status post bypass surgery; CVA; TIA; obstructive sleep apnea; diabetes mellitus; hypothyroidism; acid reflux; previous IL; hypertension; hyperlipidemia; bypass surgery in 2004; severe aortic stenosis, status post aortic valve replacement, pacemaker implantation; cholecystectomy; ; hysterectomy. SOCIAL HISTORY: No current tobacco or alcohol use. REVIEW OF SYSTEMS: A 10-point review of systems is reviewed as above, otherwise negative. PHYSICAL EXAMINATION: GENERAL: Patient is a pleasant woman, who is in no acute distress. The patient appears their stated age. VITAL SIGNS: Blood pressure 130/67, pulse 66, and temperature 98.6. NEUROLOGIC: The patient is alert and oriented x3 with no focal neurologic deficits. HEENT: Sclerae without icterus. Mouth has moist mucous membranes with normal pallor. NECK: No JVD. Carotid upstroke brisk. No bruits bilaterally. LUNGS: Clear to auscultation with unlabored respirations. BACK: No scoliosis or kyphosis. CARDIAC: Regular rate and rhythm with normal S1 and S2. No S3 or S4 noted. No significant rubs, murmurs, thrills, or gallops noted throughout the precordium. PMI is not displaced. There is no parasternal heave. ABDOMEN: Soft, nontender, nondistended. No peritoneal signs present. No hepatosplenomegaly. No abnormal striae. EXTREMITIES: 2+ femoral and 2+ dorsalis pedis pulses. No cyanosis, clubbing, or edema. SKIN: No gross abnormalities. PERTINENT LABORATORY DATA: Hemoglobin 7.9. Creatinine 0.64. IMPRESSION: 1. Coronary artery disease. 2. Aortic stenosis. 3. Status post aortic valve replacement. 4. Status post pacemaker. 5. Hypertension. 6. Hyperlipidemia. RECOMMENDATIONS: From a CV standpoint, Ms. Flores appears stable. Her hemoglobin is 7.9. We will leave it to the discretion of CV Surgery on transfusion. May need to repeat CBC in a.m. Otherwise, she has ambulated and appears to be doing well. We will continue to follow with you. Job ID: [id number]
[2018-09-11] MEDS: Levothyroxine Sodium 50 MCG TAB PO SCH (20:37)
[2018-09-11] MEDS: Atorvastatin Calcium 40 MG TAB PO SCH (20:37)
[2018-09-12] MEDS: Fentanyl 100 MCG/2 ML VIAL SLOW IVP PRN (02:17)
[2018-09-12 05:15] LABS: #Eosinphils 0.1 thou/uL (0.0-0.7); #Lymphocytes 1.4 thou/uL (1.20-3.40); #Monocytes 0.7 thou/uL (0.11-0.59); #Neutrophils 6.7 thou/uL (1.40-6.50); %Basophils 0.1 % (0.0-1.0); %Eosinophils 0.9 % (0.0-10.0); %Lymphocytes 15.3 % (21.0-51.0); %Monocytes 8.2 % (0.0-10.0); %Neutrophils 75.5 % (42.0-75.0); Hemoglobin 9.1 g/dL (12.0-16.0); Mean Corpuscular Hemoglobin 25.1 pg (27.0-31.0); Mean Corpuscular Volume 80.8 fL (78.0-98.0); Mean Platelet Volume 11.4 fL (7.4-10.4); Platelet Count 78 thou/uL (130-400); RBC Distribution Width 16.2 % (11.5-14.5); Red Blood Cell (RBC) Count 3.65 mill/uL (4.20-5.40); White Blood Cell (WBC) Count 8.9 thou/uL (4.8-10.8)
[2018-09-12 05:26] LABS: Anion Gap 12 mmol/L (10-20); BUN (Urea Nitrogen) 11 mg/dL (9.8-20.1); Calc. Creatinine Clearance 153 mL/min (70-130); Calcium 8.6 mg/dL (7.8-10.44); Carbon Dioxide 22 mmol/L (22-29); Chloride 105 mmol/L (98-107); Estimated GFR-MDRD Greater than 90; Glucose 156 mg/dL (70-105); Potassium 4.1 mmol/L (3.5-5.1); Sodium 135 mmol/L (136-145)
--- NOTE | 2018-09-12 06:39 | PDOC.CTH ---
Cardiology Progress Note - Subjective Doing well. No complaints. - Objective Vital Signs Temp Pulse Resp BP Pulse Ox 09/12/18 03:25 98.6 F 60 20 140/63 92 L 09/11/18 23:46 60 16 09/11/18 23:42 99.8 F H 64 16 162/72 H 92 L 09/11/18 21:26 92 L 09/11/18 20:37 61 09/11/18 20:00 99.0 F 100 Admit Weight 232 lb 2.348 oz Weight 238 lb 09/10/18 09/11/18 09/12/18 06:59 06:59 06:59 Intake Total 3345.5 3121 Output Total 1340 1450 Balance 2005.5 1671 - Physical Examination General/Neuro: alert & oriented x3, NAD Neck: carotid US brisk, no JVD present Lungs: unlabored respirations Heart: RRR Abdomen: NT/ND, soft Extremities: + femoral B - Labs Result Diagrams: 09/12/18 04:26 09/12/18 04:26 - Assessment/Plan CAD s/p AVR (bioprosthetic) Previous CABG HTN PAD DM Doing well BB, statin, ASA PT, IS
[2018-09-12] MEDS: Mometasone/Formoterol 120 PUFF INHALER INH SCH ×2 (07:45→19:32)
[2018-09-12] MEDS: Fish Oil 1,000 MG CAP PO SCH (08:34)
[2018-09-12] MEDS: Fenofibrate 48 MG TAB PO SCH (08:34)
[2018-09-12] MEDS: Citalopram 20 MG TAB PO SCH (08:34)
[2018-09-12] MEDS: Aspirin 325 MG TAB PO SCH (08:34)
[2018-09-12] MEDS: Carvedilol 25 MG TAB PO SCH ×2 (08:34→19:58)
[2018-09-12] MEDS: Gabapentin 400 MG CAP PO SCH ×2 (08:34→19:58)
[2018-09-12] MEDS: Furosemide 40 MG TAB PO SCH ×2 (08:34→14:17)
[2018-09-12] MEDS: Potassium Chloride 20 MEQ TAB PO SCH (08:34)
[2018-09-12] MEDS: Cholecalciferol (Vitamin D3) 400 UNITS TAB PO SCH (08:35)
[2018-09-12] MEDS: HYDROcodone/Acetaminophen 5/325 mg Tablet PO PRN ×3 (08:36→19:58)
[2018-09-12] MEDS: FLUTICASONE EA NARE SCH ×2 (08:36→20:00)
[2018-09-12] MEDS: AZELASTINE EA NARE SCH ×2 (08:36→20:00)
[2018-09-12] MEDS: Bupropion 150 MG XL TAB PO SCH (08:37)
[2018-09-12] MEDS: Magnesium 2 GM/50 ML 2 GM in Premix Bag 1 BAG IVPB SCH (08:41)
[2018-09-12] MEDS: metFORMIN 500 MG TAB PO SCH (17:33)
[2018-09-12] MEDS: Levothyroxine Sodium 50 MCG TAB PO SCH (19:58)
[2018-09-12] MEDS: Atorvastatin Calcium 40 MG TAB PO SCH (19:58)
--- NOTE | 2018-09-12 21:16 | EKG ---
Test Reason : POST OP CABG Blood Pressure : / mmHG Vent. Rate : 063 BPM Atrial Rate : 063 BPM P-R Int : 000 ms QRS Dur : 188 ms QT Int : 532 ms P-R-T Axes : 000 026 111 degrees QTc Int : 544 ms AV sequential or dual chamber electronic pacemaker When compared with ECG of 09-SEP-2018 09:56, (Unconfirmed) Electronic ventricular pacemaker has replaced Electronic atrial pacemaker Confirmed by Cory SOTO ([id number]) on 09/12/2018 9:16:08 PM Referred By: TERRA Confirmed By:Cory SOTO
[2018-09-12] MEDS: hydrALAZINE 20 MG/ML VIAL SLOW IVP PRN (23:31)
[2018-09-13] MEDS: HYDROcodone/Acetaminophen 5/325 mg Tablet PO PRN ×2 (00:33→09:52)
[2018-09-13 07:33] LABS: #Eosinphils 0.1 thou/uL (0.0-0.7); #Lymphocytes 1.8 thou/uL (1.20-3.40); #Monocytes 0.8 thou/uL (0.11-0.59); #Neutrophils 5.7 thou/uL (1.40-6.50); %Basophils 0.2 % (0.0-1.0); %Eosinophils 1.4 % (0.0-10.0); %Lymphocytes 21.8 % (21.0-51.0); %Monocytes 9.1 % (0.0-10.0); %Neutrophils 67.6 % (42.0-75.0); Hemoglobin 8.9 g/dL (12.0-16.0); Mean Corpuscular HGB CONC 31.6 g/dL (32.0-36.0); Mean Corpuscular Hemoglobin 25.5 pg (27.0-31.0); Mean Corpuscular Volume 80.6 fL (78.0-98.0); Mean Platelet Volume 10.6 fL (7.4-10.4); Platelet Count 89 thou/uL (130-400); RBC Distribution Width 16.6 % (11.5-14.5); Red Blood Cell (RBC) Count 3.48 mill/uL (4.20-5.40); White Blood Cell (WBC) Count 8.4 thou/uL (4.8-10.8)
[2018-09-13] MEDS: Mometasone/Formoterol 120 PUFF INHALER INH SCH (07:41)
[2018-09-13 07:44] LABS: Anion Gap 9 mmol/L (10-20); BUN (Urea Nitrogen) 11 mg/dL (9.8-20.1); Calc. Creatinine Clearance 154 mL/min (70-130); Calcium 9.2 mg/dL (7.8-10.44); Carbon Dioxide 26 mmol/L (22-29); Chloride 106 mmol/L (98-107); Estimated GFR-MDRD 89; Glucose 193 mg/dL (70-105); Potassium 3.8 mmol/L (3.5-5.1); Sodium 137 mmol/L (136-145)
--- NOTE | 2018-09-13 08:04 | DIS ---
DATE OF ADMISSION: 09/10/2018 DATE OF DISCHARGE: 09/13/2018 DIAGNOSES: Severe aortic stenosis, status post coronary artery bypass grafting 15 years ago. PROCEDURE PERFORMED: Redo sternotomy with aortic valve replacement utilizing a #21 Magna bioprosthetic valve. DESCRIPTION OF HOSPITAL STAY: Ms. Flores was electively brought in for aortic valve replacement. She has done well postoperatively. She has had no rhythm disturbances. At the time of discharge, she is ambulatory, tolerating a regular diet, having good bowel and bladder function. Incisions are clean and dry without evidence of infection. She will be followed up in my office in 2 weeks. Job ID: [id number]
[2018-09-13] MEDS ORDERED: Lisinopril 20 MG TAB PO SCH (09:00)
[2018-09-13] MEDS: Cholecalciferol (Vitamin D3) 400 UNITS TAB PO SCH (09:50)
[2018-09-13] MEDS: Bupropion 150 MG XL TAB PO SCH (09:50)
[2018-09-13] MEDS: Fish Oil 1,000 MG CAP PO SCH (09:50)
[2018-09-13] MEDS: Aspirin 325 MG TAB PO SCH (09:50)
[2018-09-13] MEDS: Gabapentin 400 MG CAP PO SCH (09:50)
[2018-09-13] MEDS: Furosemide 40 MG TAB PO SCH (09:51)
[2018-09-13] MEDS: Potassium Chloride 20 MEQ TAB PO SCH (09:51)
[2018-09-13] MEDS: metFORMIN 500 MG TAB PO SCH (09:51)
[2018-09-13] MEDS: Citalopram 20 MG TAB PO SCH (09:51)
[2018-09-13] MEDS: Fenofibrate 48 MG TAB PO SCH (09:53)
[2018-09-13] MEDS: Carvedilol 25 MG TAB PO SCH (09:54)
[2018-09-13] MEDS: AZELASTINE EA NARE SCH ×2 (09:55→10:02)
[2018-09-13] MEDS: FLUTICASONE EA NARE SCH ×2 (09:55→10:02)
[2018-09-13 10:17] VITALS: TEMP 98.1
[2018-09-13 14:11] VITALS: BP 96/55
[2018-09-15 14:48] LABS: Actual Bicarbonate (HCO3a) 25.1 mEq/L (22-28); Analyzer IN Cardio OR; Base Excess (BEa) -0.3 mEq/L (-2.0 to +3.0); CO2 Tension 44.1 mmHg (35.0-45.0); Calcium, Ionized 1.19 mmol/L (1.12-1.30); Carboxyhemoglobin (COHb) 2.9 gm% (0.0-3.0); Hemoglobin (Hb) 11.3 g/dL (12.0-16.0); O2 Tension (PaO2) 133.3 mmHg (80.0-100.0); Potassium - ABG Lab 3.88 mmol/L (3.70-5.30); pH, Arterial 7.37 (7.35-7.45)
[2018-09-15 14:52] LABS: Puncture Site ALINE
[2018-09-15 14:56] LABS: Actual Bicarbonate (HCO3a) 23.8 mEq/L (22-28); Analyzer IN Cardio OR; Base Excess (BEa) -1.2 mEq/L (-2.0 to +3.0); CO2 Tension 40.9 mmHg (35.0-45.0); Calcium, Ionized 0.98 mmol/L (1.12-1.30); Carboxyhemoglobin (COHb) 2.2 gm% (0.0-3.0); Hemoglobin (Hb) 8.8 g/dL (12.0-16.0); O2 Tension (PaO2) 399.8 mmHg (80.0-100.0); Potassium - ABG Lab 3.16 mmol/L (3.70-5.30); pH, Arterial 7.38 (7.35-7.45)
[2018-09-15 14:56] LABS: Actual Bicarbonate (HCO3a) 23.3 mEq/L (22-28); Analyzer IN Cardio OR; Base Excess (BEa) -2.2 mEq/L (-2.0 to +3.0); CO2 Tension 43.1 mmHg (35.0-45.0); Calcium, Ionized 1.14 mmol/L (1.12-1.30); Carboxyhemoglobin (COHb) 1.8 gm% (0.0-3.0); Hemoglobin (Hb) 10.3 g/dL (12.0-16.0); O2 Tension (PaO2) 168.3 mmHg (80.0-100.0); Potassium - ABG Lab 3.62 mmol/L (3.70-5.30); pH, Arterial 7.35 (7.35-7.45)
[2018-09-15 14:57] LABS: Actual Bicarbonate (HCO3a) 22.3 mEq/L (22-28); Analyzer IN Cardio OR; Base Excess (BEa) -3.6 mEq/L (-2.0 to +3.0); CO2 Tension 44.5 mmHg (35.0-45.0); Calcium, Ionized 1.03 mmol/L (1.12-1.30); Carboxyhemoglobin (COHb) 2.3 gm% (0.0-3.0); Hemoglobin (Hb) 8.5 g/dL (12.0-16.0); O2 Tension (PaO2) 354.4 mmHg (80.0-100.0); Potassium - ABG Lab 3.46 mmol/L (3.70-5.30); pH, Arterial 7.32 (7.35-7.45)
[2018-09-15 14:57] LABS: Actual Bicarbonate (HCO3v) 23 mEq/L (22-28); Analyzer IN Cardio OR; Base Excess -3.6 mEq/L (-2.0 to +3.0); Calcium, Ionized 1.04 mmol/L (1.16-1.32); Chloride (ABG LAB) 110 mmol/L (98-106); Hemoglobin (Hb) 8.5 g/dL (11.7-16.0); Potassium - ABG Lab 3.46 mmol/L (3.70-5.30); Sodium 138.4 mmol/L (133-146)
[2018-09-15 14:59] LABS: Actual Bicarbonate (HCO3a) 22.8 mEq/L (22-28); Analyzer IN Cardio OR; Base Excess (BEa) -1.9 mEq/L (-2.0 to +3.0); CO2 Tension 38.4 mmHg (35.0-45.0); Calcium, Ionized 1.05 mmol/L (1.12-1.30); Carboxyhemoglobin (COHb) 1.8 gm% (0.0-3.0); Hemoglobin (Hb) 8.5 g/dL (12.0-16.0); O2 Tension (PaO2) 126.5 mmHg (80.0-100.0); Potassium - ABG Lab 4.03 mmol/L (3.70-5.30); pH, Arterial 7.39 (7.35-7.45)
[2018-09-15 15:01] LABS: Actual Bicarbonate (HCO3a) 22.8 mEq/L (22-28); Analyzer IN Cardio OR; CO2 Tension 38.7 mmHg (35.0-45.0); Calcium, Ionized 1.05 mmol/L (1.12-1.30); Carboxyhemoglobin (COHb) 1.2 gm% (0.0-3.0); Hemoglobin (Hb) 9.7 g/dL (12.0-16.0); O2 Tension (PaO2) 227.8 mmHg (80.0-100.0); Potassium - ABG Lab 3.76 mmol/L (3.70-5.30); pH, Arterial 7.39 (7.35-7.45)
[2018-09-15 15:03] LABS: Puncture Site ALINE
[2018-09-15 15:04] LABS: Puncture Site ALINE
[2018-09-15 15:04] LABS: Puncture Site ALINE
[2018-09-15 15:05] LABS: Puncture Site ALINE
[2018-09-15 15:05] LABS: Puncture Site ALINE
== END 2018-09-13 13:30 | disposition home or self-care (01) | DRG 220 ==
LOC: SURG A 09-10 05:54 → CCU 09-10 11:50 → 2NO 09-11 21:23
PROVIDERS: ADMIT Thoracic Surgery (Cardiothoracic Vascular Surgery); ATTEND Thoracic Surgery (Cardiothoracic Vascular Surgery)
PROC: 02RF08Z Replacement of Aortic Valve with Zooplastic Tissue, Open Approach (ICD-10-PCS; principal; 2018-09-10)
PROC: 5A1221Z Performance of Cardiac Output, Continuous (ICD-10-PCS; 2018-09-10)
DX: I35.0 Nonrheumatic aortic (valve) stenosis (principal); Z68.41 Body mass index [BMI] 40.0-44.9, adult; F31.9 Bipolar disorder, unspecified; E66.01 Morbid (severe) obesity due to excess calories; I10 Essential (primary) hypertension; I25.10 Atherosclerotic heart disease of native coronary artery without angina pectoris; E78.5 Hyperlipidemia, unspecified; E03.9 Hypothyroidism, unspecified; G47.33 Obstructive sleep apnea (adult) (pediatric); E11.9 Type 2 diabetes mellitus without complications; Z95.0 Presence of cardiac pacemaker; Z88.2 Allergy status to sulfonamides; Z88.8 Allergy status to other drugs, medicaments and biological substances; Z95.1 Presence of aortocoronary bypass graft; Z86.73 Personal history of transient ischemic attack (TIA), and cerebral infarction without residual deficits; Z90.49 Acquired absence of other specified parts of digestive tract
CPT/HCPCS: 36415; 36416; 36430; 71045; 71270; 80048; 82805; 82947; 85025; 85027; 85610; 85730; 86850; 86900; 86901; 93005; 93010; 93798; 94002; 94640; J0360; J0670; J0690; J1100; J1642; J1644; J1815; J1940; J2250; J2260; J2270; J2400; J3010; J3370; J3475; J3480; J3490; J7050; J7620; P9016; P9045; Q9966; S0028

== ENCOUNTER 2018-09-22 17:04 | Emergency (ER) | payer MEDICARE, OTHER ==
[2018-09-22 17:56] LABS: #Eosinphils 0.2 thou/uL (0.0-0.7); #Monocytes 0.4 thou/uL (0.11-0.59); #Neutrophils 5.4 thou/uL (1.40-6.50); %Basophils 0.5 % (0.0-1.0); %Eosinophils 2.8 % (0.0-10.0); %Lymphocytes 24.6 % (21.0-51.0); %Monocytes 5.1 % (0.0-10.0); %Neutrophils 67.1 % (42.0-75.0); Hemoglobin 8.2 g/dL (12.0-16.0); Mean Corpuscular HGB CONC 31.1 g/dL (32.0-36.0); Mean Corpuscular Hemoglobin 24.9 pg (27.0-31.0); Mean Corpuscular Volume 80.2 fL (78.0-98.0); Mean Platelet Volume 8.7 fL (7.4-10.4); Platelet Count 227 thou/uL (130-400); RBC Distribution Width 16.4 % (11.5-14.5); White Blood Cell (WBC) Count 8.1 thou/uL (4.8-10.8)
[2018-09-22 18:09] LABS: INR-International Normal Ratio 1.2; PTT 33.1 SEC (22.9-36.1); Prothrombin Time 15.2 SEC (12.0-14.7)
[2018-09-22 18:16] LABS: ALT (SGPT) 22 U/L (8-55); AST (SGOT) 18 U/L (5-34); Albumin 3.7 g/dL (3.5-5.0); Alkaline Phosphatase 70 U/L (40-150); Anion Gap 11 mmol/L (10-20); BUN (Urea Nitrogen) 13 mg/dL (9.8-20.1); Bilirubin, Total 0.4 mg/dL (0.2-1.2); Calc. Creatinine Clearance 0 mL/min (70-130); Carbon Dioxide 26 mmol/L (22-29); Chloride 106 mmol/L (98-107); Estimated GFR-MDRD 76; Globulin 2.5 g/dL (2.4-3.5); Glucose 129 mg/dL (70-105); Potassium 4.4 mmol/L (3.5-5.1); Protein, Total 6.2 g/dL (6.0-8.3); Sodium 139 mmol/L (136-145)
--- NOTE | 2018-09-22 18:17 | RAD ---
Chest one view HISTORY: Chest pain. COMPARISON: 09/11/2018. FINDINGS: Cardiac silhouette is identified and enlarged. On the previous exam. Mediastinum is midline with postoperative changes and cardiac electronic device . No lobar consolidation or evidence of pneumothorax. IMPRESSION: Slight interval increase in degree of pulmonary vascular congestion. Cardiomegaly.
[2018-09-22 18:38] LABS: CKMB 1.7 ng/mL (0-6.6)
[2018-09-22 21:20] LABS: Troponin I 0.021 ng/mL (< 0.028)
== END 2018-09-22 21:38 | disposition home or self-care (01) ==
LOC: ERS 17:04
DX: D64.9 Anemia, unspecified (principal); F32.9 Major depressive disorder, single episode, unspecified; E11.9 Type 2 diabetes mellitus without complications; E78.5 Hyperlipidemia, unspecified; I10 Essential (primary) hypertension; I25.2 Old myocardial infarction; E66.9 Obesity, unspecified; F17.210 Nicotine dependence, cigarettes, uncomplicated; Z79.899 Other long term (current) drug therapy; Z79.891 Long term (current) use of opiate analgesic; Z79.84 Long term (current) use of oral hypoglycemic drugs; Z79.51 Long term (current) use of inhaled steroids; Z79.82 Long term (current) use of aspirin
CPT/HCPCS: 36415; 71045; 80053; 82553; 84484; 85025; 85610; 85730; 86850; 86900; 86901; 93005

== ENCOUNTER 2019-01-13 10:10 | Outpatient (CLI) | payer MEDICARE, MEDICAID ==
--- NOTE | 2019-01-13 10:44 | RAD ---
TWO VIEW CHEST: INDICATION: Dyspnea. FINDINGS: Cardiomegaly with postop sternotomy change. Mild vascular engorgement. Prominent pulmonary artery s egments. No evidence of focal infiltrate or significant effusion. Pacemaker leads are unchanged. IMPRESSION: Cardiomegaly and mild vascular engorgement. No acute interval change. POS: [facility]
== END 2019-01-13 10:11 | disposition home or self-care (01) ==
LOC: RAD 10:10
PROVIDERS: ATTEND Internal Medicine Critical Care Medicine
DX: R06.00 Dyspnea, unspecified (principal); I51.7 Cardiomegaly
CPT/HCPCS: 71046

== ENCOUNTER 2019-02-11 07:35 | Outpatient (CLI) | payer MEDICARE, MEDICAID | END 2019-02-11 07:36 | disposition home or self-care (01) | LOC: CP 07:35 | PROVIDERS: ATTEND Internal Medicine Critical Care Medicine | DX: R06.00 Dyspnea, unspecified (principal) | CPT/HCPCS: 94060; 94727; 94729 ==

== ENCOUNTER 2019-04-28 08:16 | Outpatient (CLI) | payer MEDICARE, MEDICAID ==
--- NOTE | 2019-04-28 09:28 | MMO ---
Bilateral MAMMO Bilat Screen [facility]. CLINICAL HISTORY: Patient is 58 years old and is seen for screening. The patient has the following family history of breast cancer: maternal grandmother, at age 48. The patient has no personal history of cancer. The patient has a history of right Excisional Biopsy in ? - benign. VIEWS: The views performed were: bilateral craniocaudal with tomosynthesis and bilateral mediolateral oblique with tomosynthesis. FILMS COMPARED: The present examination has been compared to prior imaging studies performed at [facility] on 11/29/2010, 02/02/2015 and 07/18/2017, and at [facility] on 06/07/2009. This study has been interpreted with the assistance of computer-aided detection. MAMMOGRAM FINDINGS: There are scattered fibroglandular densities. Finding 1: There is a stable post-surgical scar seen in the right breast. Finding 2: There are stable benign appearing calcifications seen in both breasts. There are no suspicious masses, suspicious calcifications, or new areas of architectural distortion. IMPRESSION: THERE IS NO MAMMOGRAPHIC EVIDENCE OF MALIGNANCY. A ROUTINE FOLLOW-UP MAMMOGRAM IN 1 YEAR IS RECOMMENDED. THE RESULTS OF THIS EXAM WERE SENT TO THE PATIENT. ACR BI-RADS Category 2 - Benign finding MAMMOGRAPHY NOTE: 1. A negative mammogram report should not delay a biopsy if a dominant of clinically suspicious mass is present. 2. Approximately 10% to 15% of breast cancers are not detected by mammography. 3. Adenosis and dense breasts may obscure an underlying neoplasm. Reported by: TOYA BARRON MD Electonically Signed: [id number]
== END 2019-04-28 08:17 | disposition home or self-care (01) ==
LOC: BICMAMMO 08:16
PROVIDERS: ATTEND Family Medicine
DX: Z12.31 Encounter for screening mammogram for malignant neoplasm of breast (principal); Z80.3 Family history of malignant neoplasm of breast
CPT/HCPCS: 77063; 77067

== ENCOUNTER 2019-05-28 13:08 | Outpatient (CLI) | payer MEDICARE, MEDICAID ==
--- NOTE | 2019-05-28 13:59 | CT ---
EXAM: CT Lumbar Spine WO Con PROVIDED CLINICAL HISTORY: Lumbar stenosis with neurogenic claudication COMPARISON: 10/28/2009 FINDINGS: Lumbar alignment remains normal. Vertebral body heights are preserved. No evidence for fracture or ot her acute osseous abnormality. Extensive vascular calcification is noted bilateral iliac stent material is seen. At L1-2, there is no significant central canal or foraminal narrowing apparent. At L2-3, there is no significant central canal or foraminal narrowing apparent. At L3-4, there is no significant central canal or foraminal narrowing apparent. At L4-5, there is a broad-based disc bulge without CT evidence for significant central canal or vishal inal narrowing. At L5-S1, there is a broad-based disc bulge with accompanying osteophyte in each foraminal region. Th ere is bilateral facet arthritis. There is mild left and severe right foraminal narrowing. This appears similar to prior. IMPRESSION: Degenerative change at the lumbosacral junction producing severe right foraminal narrowing, similar t o prior.
== END 2019-05-28 13:09 | disposition home or self-care (01) ==
LOC: BICCT 13:08
PROVIDERS: ATTEND Anesthesiology Pain Medicine
DX: M48.062 Spinal stenosis, lumbar region with neurogenic claudication (principal); M47.817 Spondylosis without myelopathy or radiculopathy, lumbosacral region; M48.07 Spinal stenosis, lumbosacral region
CPT/HCPCS: 72131

== ENCOUNTER 2019-08-21 16:36 | Emergency (ER) | payer MEDICARE, MEDICAID ==
[2019-08-21] MEDS ORDERED: HYDROcodone/Acetaminophen 10/325 mg Tablet ONE (17:50)
--- NOTE | 2019-08-21 19:56 | CT ---
EXAM: BRAIN CT WITHOUT IV CONTRAST: 08/21/19 HISTORY: Injury from a fall. FINDINGS: Large right parietal scalp hematoma. No evidence for associated skull fracture. No focal mass or midl ine shift. No intra or extra-axial hemorrhage. Minimally prominent sella turcica. Possibly a partial empty sella. No focal mass or midline shift. No intra or extra-axial hemorrhage. IMPRESSION: Large right sided scalp hematoma. No mass or bleed. Evidence for a stable possible partial empty sell a. POS: [facility]
--- NOTE | 2019-08-21 21:08 | CT ---
CT CERVICAL SPINE WITHOUT CONTRAST: 08/21/19 HISTORY: Fall. COMPARISON: None. FINDINGS: The occipital condyles are intact. There is calcifications adjacent to the occipital condyles which a re in the location of the vertebral arteries and felt to reflect vascular calcifications versus dural calcifications and much less likely occipital condyle fractures. These are somewhat posterior to the expected location of an occipital condyle fracture. There is also no donor site of the avulsion type fracture that would be expected with this kind of finding filling the occipital condyles. Asymmetric narrowing of the right C1-2 articulation with osteophyte formation. The odontoid process i s intact. There is no acute fracture or malalignment of the cervical spine. The transverse processes are intact. The visualized posterior ribs are intact. Dense calcifications of the carotid bulbs. IMPRESSION: 1. No acute fracture or malalignment of the cervical spine. 2. Relative high density calcifications at the transverse foramen of C1 bilaterally likely refle ct either vertebral vascular calcifications, dural calcifications, or partial cartilaginous calcifica tions from the incompletely formed superior aspect of the transverse foramen of C1 bilaterally. It is much less likely felt to be occipital condyle avulsions. POS: HOME
== END 2019-08-21 20:59 | disposition home or self-care (01) ==
LOC: ERS 16:36
DX: S00.03XA Contusion of scalp, initial encounter (principal); I25.2 Old myocardial infarction; E11.9 Type 2 diabetes mellitus without complications; E78.5 Hyperlipidemia, unspecified; E66.9 Obesity, unspecified; I10 Essential (primary) hypertension; F32.9 Major depressive disorder, single episode, unspecified; Z79.82 Long term (current) use of aspirin; Z79.84 Long term (current) use of oral hypoglycemic drugs; Z79.899 Other long term (current) drug therapy; W22.8XXA Striking against or struck by other objects, initial encounter
CPT/HCPCS: 70450; 72125; 93005; L0120

== ENCOUNTER 2020-04-18 09:41 | Emergency (ER) | payer MEDICARE, OTHER ==
--- NOTE | 2020-04-18 10:27 | RAD ---
Portable frontal chest radiograph: 04/18/2020 COMPARISON: 09/22/2018 HISTORY: Nausea, dizziness FINDINGS: Stable midline sternotomy wires and transvenous pacing device. No pneumothorax or pleural f luid. No focal consolidation or alveolar edema. IMPRESSION: No acute findings.
--- NOTE | 2020-04-18 10:33 | CT ---
Head CT without contrast 04/18/2020: COMPARISON: 08/29/2019 HISTORY: Nausea, dizziness TECHNIQUE: Axial CT imaging at 5 mm intervals from vertex through skull base without contrast FINDINGS: The visualized paranasal sinuses and mastoid air cells are well-aerated. No displaced trena rial fracture, intracranial hemorrhage, midline shift, or mass effect. IMPRESSION: No acute findings.
[2020-04-18 10:45] LABS: #Eosinphils 0.2 thou/uL (0.0-0.7); #Monocytes 0.4 thou/uL (0.11-0.59); #Neutrophils 4.5 thou/uL (1.40-6.50); %Basophils 0.5 % (0.0-1.0); %Eosinophils 2.6 % (0.0-10.0); %Lymphocytes 27.9 % (21.0-51.0); %Monocytes 5.1 % (0.0-10.0); Hemoglobin 16.2 g/dL (12.0-16.0); Mean Corpuscular HGB CONC 32.4 g/dL (32.0-36.0); Mean Corpuscular Hemoglobin 30.1 pg (27.0-31.0); Mean Corpuscular Volume 92.9 fL (78.0-98.0); Mean Platelet Volume 9.5 fL (7.4-10.4); Platelet Count 114 thou/uL (130-400); RBC Distribution Width 12.8 % (11.5-14.5); Red Blood Cell (RBC) Count 5.39 mill/uL (4.20-5.40); White Blood Cell (WBC) Count 7.1 thou/uL (4.8-10.8)
[2020-04-18 10:46] LABS: Platelet Morphology Comment Appears Decreased; RBC Morphology Normal
[2020-04-18 10:59] LABS: ALT (SGPT) 26 U/L (8-55); AST (SGOT) 42 U/L (5-34); Albumin 4.6 g/dL (3.5-5.0); Alkaline Phosphatase 62 U/L (40-110); Anion Gap 19 mmol/L (10-20); BUN (Urea Nitrogen) 15 mg/dL (9.8-20.1); Bilirubin, Total 0.5 mg/dL (0.2-1.2); Calc. Creatinine Clearance 0 mL/min (70-130); Calcium 9.6 mg/dL (7.8-10.44); Carbon Dioxide 23 mmol/L (22-29); Chloride 104 mmol/L (98-107); Globulin 3.4 g/dL (2.4-3.5); Glucose 175 mg/dL (70-105); Potassium 5.2 mmol/L (3.5-5.1); Sodium 141 mmol/L (136-145)
[2020-04-18] MEDS ORDERED: Meclizine HCl 25 MG TAB ONE (11:16)
[2020-04-18] MEDS ORDERED: hydrALAZINE 20 MG/ML VIAL ONE (11:16)
[2020-04-18 12:55] LABS: Bacteria/HPF None Seen HPF (None Seen); Bilirubin Negative (Negative); Blood, Urine Negative (Negative); Clarity Clear (Clear); Glucose, Urine (Dipstick) Greater than 1000 mg/dL (Negative); Ketone, Urine Negative (Negative); Leukocyte Negative Leu/uL (Negative); Nitrite Negative (Negative); Protein, Urine (Dipstick) 70 mg/dL (Neg-Trace); RBC/HPF 0-3 HPF (0-3); Squamous Epithelial 0-3 HPF (0-3); Urobilinogen Normal mg/dL (Less than 2); WBC/HPF 0-3 HPF (0-3); pH, Urine 7.5 (5.0-9.0)
--- NOTE | 2020-05-07 16:13 | EKG ---
Test Reason : Blood Pressure : / mmHG Vent. Rate : 065 BPM Atrial Rate : 065 BPM P-R Int : 188 ms QRS Dur : 110 ms QT Int : 448 ms P-R-T Axes : 011 019 136 degrees QTc Int : 465 ms Atrial-paced rhythm with occasional AV dual-paced complexes Left ventricular hypertrophy with repolarization abnormality Inferior infarct , age undetermined Abnormal ECG Confirmed by BLANCA MOON DO ([id number]), story editor ABDIRIZAK NOBLE ([id number]) on 05/07/2020 4:13:02 PM Referred By: Confirmed By:BLANCA MOON DO
== END 2020-04-18 13:18 | disposition home or self-care (01) ==
LOC: ERS 09:41
DX: I10 Essential (primary) hypertension (principal); R42 Dizziness and giddiness; R11.2 Nausea with vomiting, unspecified; E03.9 Hypothyroidism, unspecified; I25.2 Old myocardial infarction; E11.9 Type 2 diabetes mellitus without complications; E66.9 Obesity, unspecified; F17.200 Nicotine dependence, unspecified, uncomplicated; Z79.82 Long term (current) use of aspirin; Z79.899 Other long term (current) drug therapy; Z79.84 Long term (current) use of oral hypoglycemic drugs
CPT/HCPCS: 70450; 71045; 80053; 81003; 81015; 84484; 85025; 93005; 96374; J0360

== ENCOUNTER 2020-08-15 09:43 | Outpatient (CLI) | payer MEDICARE, OTHER | END 2020-08-15 09:44 | disposition home or self-care (01) | LOC: BICMAMMO 09:43 | PROVIDERS: ATTEND Family Medicine | DX: Z12.31 Encounter for screening mammogram for malignant neoplasm of breast (principal); Z80.3 Family history of malignant neoplasm of breast | CPT/HCPCS: 77063; 77067 ==

== ENCOUNTER 2020-08-15 10:19 | Outpatient (CLI) | payer MEDICARE, OTHER | END 2020-08-15 10:20 | disposition home or self-care (01) | LOC: BICRAD 10:19 | PROVIDERS: ATTEND Internal Medicine Critical Care Medicine | DX: R06.00 Dyspnea, unspecified (principal) | CPT/HCPCS: 71046 ==

== ENCOUNTER 2021-09-18 20:44 | Inpatient (IN) | payer OTHER ==
[~2021-09-18 20:44] MED LIST: ISOVUE-370 76%-LOCM 1 ML ONE
[2021-09-18 21:50] LABS: #Basophils 0.1 thou/uL (0.0-0.2); #Eosinphils 0.1 thou/uL (0.0-0.7); #Lymphocytes 1.9 thou/uL (1.20-3.40); #Monocytes 0.8 thou/uL (0.11-0.59); #Neutrophils 9.4 thou/uL (1.40-6.50); %Basophils 0.4 % (0.0-1.0); %Eosinophils 0.8 % (0.0-10.0); %Lymphocytes 15.7 % (21.0-51.0); %Monocytes 6.7 % (0.0-10.0); %Neutrophils 76.4 % (42.0-75.0); Hemoglobin 15.7 g/dL (12.0-16.0); Mean Corpuscular HGB CONC 31.7 g/dL (32.0-36.0); Mean Corpuscular Volume 91.4 fL (78.0-98.0); Mean Platelet Volume 8.6 fL (7.4-10.4); Platelet Count 145 thou/uL (130-400); RBC Distribution Width 14.7 % (11.5-14.5); Red Blood Cell (RBC) Count 5.42 mill/uL (4.20-5.40); White Blood Cell (WBC) Count 12.4 thou/uL (4.8-10.8)
[2021-09-18 22:02] LABS: ALT (SGPT) 19 U/L (8-55); AST (SGOT) 17 U/L (5-34); Albumin 4.3 g/dL (3.4-4.8); Alkaline Phosphatase 66 U/L (40-110); Anion Gap 14 mmol/L (10-20); BUN (Urea Nitrogen) 23 mg/dL (9.8-20.1); Bilirubin, Total 0.6 mg/dL (0.2-1.2); Calc. Creatinine Clearance 0 mL/min (70-130); Calcium 10.3 mg/dL (7.8-10.44); Carbon Dioxide 23 mmol/L (23-31); Chloride 105 mmol/L (98-107); Glucose 129 mg/dL (80-115); Potassium 4.3 mmol/L (3.5-5.1); Protein, Total 7.3 g/dL (5.8-8.1); Sodium 138 mmol/L (136-145)
[2021-09-18] MEDS ORDERED: Ondansetron ODT 4 MG TAB PO PRN (23:43)
[2021-09-18] MEDS ORDERED: Ondansetron PF 4 MG/2 ML Vial IVP PRN (23:43)
[2021-09-18] MEDS ORDERED: Acetaminophen 650 MG Suppository PR PRN (23:43)
[2021-09-18] MEDS ORDERED: Pantoprazole 40 MG VIAL IVP SCH (23:45)
[2021-09-19 02:59] VITALS: BMI 37.5
[2021-09-19] MEDS: Sodium Chloride 0.9% 1,000 ML IV SCH ×3 (03:13→16:25)
[2021-09-19] MEDS: Acetaminophen 325 MG TAB PO PRN ×2 (03:22→11:21)
[2021-09-19] MEDS ORDERED: hydrALAZINE 20 MG/ML VIAL SLOW IVP SCH (06:15)
[2021-09-19] MEDS ORDERED: HumaLOG 300 UNITS/3 ML VIAL SC PRN ×2 (06:18)
[2021-09-19] MEDS ORDERED: Dextrose 50% Abboject 50 ML SYRINGE SLOW IVP PRN (06:18)
[2021-09-19] MEDS ORDERED: Dextrose 5% in Water 1,000 ML IV PRN (06:18)
[2021-09-19 06:22] LABS: #Eosinphils 0.2 thou/uL (0.0-0.7); #Lymphocytes 2.4 thou/uL (1.20-3.40); #Monocytes 0.7 thou/uL (0.11-0.59); #Neutrophils 5.4 thou/uL (1.40-6.50); %Basophils 0.3 % (0.0-1.0); %Eosinophils 1.9 % (0.0-10.0); %Lymphocytes 27.4 % (21.0-51.0); %Monocytes 8.2 % (0.0-10.0); %Neutrophils 62.1 % (42.0-75.0); Hemoglobin 15.5 g/dL (12.0-16.0); Mean Corpuscular HGB CONC 30.6 g/dL (32.0-36.0); Mean Corpuscular Hemoglobin 27.9 pg (27.0-31.0); Mean Corpuscular Volume 91.2 fL (78.0-98.0); Mean Platelet Volume 8.5 fL (7.4-10.4); Platelet Count 122 thou/uL (130-400); RBC Distribution Width 14.8 % (11.5-14.5); Red Blood Cell (RBC) Count 5.57 mill/uL (4.20-5.40); White Blood Cell (WBC) Count 8.7 thou/uL (4.8-10.8)
[2021-09-19 06:40] LABS: Anion Gap 13 mmol/L (10-20); BUN (Urea Nitrogen) 17 mg/dL (9.8-20.1); Calc. Creatinine Clearance 104 mL/min (70-130); Calcium 9.9 mg/dL (7.8-10.44); Carbon Dioxide 24 mmol/L (23-31); Chloride 106 mmol/L (98-107); Glucose 134 mg/dL (80-115); Potassium 3.7 mmol/L (3.5-5.1); Sodium 139 mmol/L (136-145)
[2021-09-19] MEDS: Pantoprazole 40 MG VIAL IVP SCH ×2 (08:15→21:00)
[2021-09-19] MEDS ORDERED: Non-Formulary Item 1 EACH (Albuterol Sulfate [Proair Hfa] 8.5 GM Hfa.Aer.Ad) INH PRN (10:02)
[2021-09-19] MEDS ORDERED: Albuterol Sulfate 2.5 mg/3 ml Neb NEB PRN (10:11)
[2021-09-19] MEDS ORDERED: Carvedilol 25 MG TAB PO SCH (10:15)
[2021-09-19] MEDS ORDERED: Lisinopril 20 MG TAB PO SCH (10:15)
[2021-09-19] MEDS ORDERED: Carvedilol 6.25 MG TAB PO SCH (21:00)
[2021-09-19] MEDS: Carvedilol 25 MG TAB PO SCH (21:05)
[2021-09-19] MEDS: cloNIDine 0.1 MG TAB PO PRN (21:08)
[2021-09-20] MEDS: Sodium Chloride 0.9% 1,000 ML IV SCH ×3 (02:00→16:17)
[2021-09-20 08:24] LABS: Glucose 142 mg/dL (80-115)
[2021-09-20] MEDS: Lisinopril 20 MG TAB PO SCH (09:16)
[2021-09-20] MEDS: Carvedilol 25 MG TAB PO SCH ×2 (09:16→20:34)
[2021-09-20] MEDS: Pantoprazole 40 MG VIAL IVP SCH ×2 (09:17→20:35)
[2021-09-20 09:26] LABS: Hemoglobin 16.2 g/dL (12.0-16.0)
[2021-09-20 11:08] LABS: Calcium 9.7 mg/dL (7.8-10.44); Chloride 108 mmol/L (98-107); Potassium 3.7 mmol/L (3.5-5.1); Sodium 139 mmol/L (136-145)
[2021-09-20 11:09] LABS: Glucose 160 mg/dL (80-115)
[2021-09-20 11:11] LABS: Anion Gap 15 mmol/L (10-20); Carbon Dioxide 20 mmol/L (23-31)
[2021-09-20 11:12] LABS: Calc. Creatinine Clearance 135 mL/min (70-130)
[2021-09-20 11:13] LABS: BUN (Urea Nitrogen) 6 mg/dL (9.8-20.1)
[2021-09-20 13:30] LABS: Campy jejuni + coli by PCR Negative (Negative); STEC Shiga Toxin 1+2 Negative (Negative); Salmonella spp. by PCR Negative (Negative); Shigella spp + EIEC by PCR Negative (Negative)
[2021-09-20] MEDS: metFORMIN 500 MG TAB PO SCH (16:11)
[2021-09-20] MEDS: cloNIDine 0.1 MG TAB PO PRN (17:14)
[2021-09-20 17:23] LABS: Glucose 105 mg/dL (80-115)
[2021-09-20] MEDS: hydrALAZINE 20 MG/ML VIAL SLOW IVP SCH (18:19)
[2021-09-20] MEDS: Mometasone 200 MCG/Formoterol 5 MCG 120 PUFF INHALER INH SCH (20:25)
[2021-09-20] MEDS: Fluticasone Propionate Nasal Spray 16 gm Bottle NASAL SCH (20:29)
[2021-09-20] MEDS: Azelastine 137 MCG/Spray 30 ML NS SCH (20:30)
[2021-09-20] MEDS: Gabapentin 400 MG CAP PO SCH (20:33)
[2021-09-20] MEDS ORDERED: Atorvastatin Calcium 40 MG TAB PO SCH (21:00)
[2021-09-20] MEDS ORDERED: Oxybutynin ER 5 MG TAB PO SCH (21:00)
[2021-09-21] MEDS: Sodium Chloride 0.9% 1,000 ML IV SCH ×2 (00:09→08:44)
[2021-09-21] MEDS: cloNIDine 0.1 MG TAB PO PRN (05:14)
[2021-09-21 05:35] LABS: Hemoglobin 15.2 g/dL (12.0-16.0)
[2021-09-21] MEDS ORDERED: Levothyroxine Sodium 50 MCG TAB PO SCH (06:00)
[2021-09-21] MEDS: Mometasone 200 MCG/Formoterol 5 MCG 120 PUFF INHALER INH SCH (07:15)
[2021-09-21] MEDS: hydrALAZINE 20 MG/ML VIAL SLOW IVP SCH (07:21)
[2021-09-21 07:33] LABS: Glucose 143 mg/dL (80-115)
[2021-09-21 07:37] LABS: Anion Gap 14 mmol/L (10-20); BUN (Urea Nitrogen) 4 mg/dL (9.8-20.1); Calc. Creatinine Clearance 145 mL/min (70-130); Calcium 9.5 mg/dL (7.8-10.44); Carbon Dioxide 23 mmol/L (23-31); Chloride 109 mmol/L (98-107); Glucose 140 mg/dL (80-115); Potassium 3.5 mmol/L (3.5-5.1); Sodium 142 mmol/L (136-145)
[2021-09-21] MEDS: Gabapentin 400 MG CAP PO SCH (08:39)
[2021-09-21] MEDS: Lisinopril 20 MG TAB PO SCH (08:41)
[2021-09-21] MEDS: Pantoprazole 40 MG VIAL IVP SCH (08:42)
[2021-09-21] MEDS: Carvedilol 25 MG TAB PO SCH (08:42)
[2021-09-21] MEDS: metFORMIN 500 MG TAB PO SCH (08:42)
[2021-09-21] MEDS: Azelastine 137 MCG/Spray 30 ML NS SCH (08:44)
[2021-09-21] MEDS: Fluticasone Propionate Nasal Spray 16 gm Bottle NASAL SCH (08:44)
[2021-09-21] MEDS ORDERED: Fenofibrate 48 MG TAB PO SCH (09:00)
[2021-09-21] MEDS ORDERED: Multivit, Therapeutic 1 TAB PO SCH (09:00)
[2021-09-21] MEDS ORDERED: Bupropion 150 MG XL TAB PO SCH (09:00)
[2021-09-21] MEDS ORDERED: Citalopram 20 MG TAB PO SCH (09:00)
[2021-09-21 11:35] VITALS: BP 174/91; TEMP 98.8
== END 2021-09-21 11:55 | disposition home or self-care (01) | DRG 379 ==
LOC: ERS 20:44 → T4-B 23:07 → OBSVTOIN 09-20 15:42
PROVIDERS: ADMIT Family Medicine; ATTEND Family Medicine
DX: K92.1 Melena (principal); Z20.822 Contact with and (suspected) exposure to COVID-19; E03.9 Hypothyroidism, unspecified; E11.9 Type 2 diabetes mellitus without complications; E78.5 Hyperlipidemia, unspecified; I10 Essential (primary) hypertension; F32.A Depression, unspecified; E66.9 Obesity, unspecified; K59.00 Constipation, unspecified; Z60.2 Problems related to living alone; J38.3 Other diseases of vocal cords; I25.2 Old myocardial infarction; Z68.37 Body mass index [BMI] 37.0-37.9, adult; Z88.6 Allergy status to analgesic agent; Z88.2 Allergy status to sulfonamides; Z88.8 Allergy status to other drugs, medicaments and biological substances; Z79.899 Other long term (current) drug therapy; Z79.890 Hormone replacement therapy; Z79.84 Long term (current) use of oral hypoglycemic drugs; Z79.82 Long term (current) use of aspirin; Z98.51 Tubal ligation status; Z95.2 Presence of prosthetic heart valve; Z95.0 Presence of cardiac pacemaker; Z95.1 Presence of aortocoronary bypass graft; Z90.49 Acquired absence of other specified parts of digestive tract; Z90.710 Acquired absence of both cervix and uterus; Z80.8 Family history of malignant neoplasm of other organs or systems; Z80.49 Family history of malignant neoplasm of other genital organs; Z80.0 Family history of malignant neoplasm of digestive organs; Z80.3 Family history of malignant neoplasm of breast; Z87.891 Personal history of nicotine dependence
CPT/HCPCS: 36415; 36416; 74177; 80048; 80053; 82947; 83630; 85014; 85018; 85025; 86850; 86900; 86901; 87324; 87449; 87505; 93005; 94664; 96374; 96375; 96376; C9113; G0378; J0360; J7050; Q9966; U0003; U0005

== ENCOUNTER 2021-10-09 12:51 | Outpatient (CLI) | payer OTHER | END 2021-10-09 12:52 | disposition home or self-care (01) | LOC: LABBT 12:51 | PROVIDERS: ATTEND Physician Assistant Medical | DX: Z20.822 Contact with and (suspected) exposure to COVID-19 (principal) | CPT/HCPCS: 87811 ==

== ENCOUNTER 2021-10-12 08:00 | Outpatient (CLI) | payer OTHER | END 2021-10-12 08:01 | disposition home or self-care (01) | LOC: RAD 08:00 | PROVIDERS: ATTEND Physician Assistant Medical | DX: K52.9 Noninfective gastroenteritis and colitis, unspecified (principal); K92.1 Melena; R13.10 Dysphagia, unspecified; K21.9 Gastro-esophageal reflux disease without esophagitis; K59.00 Constipation, unspecified; R10.9 Unspecified abdominal pain; K22.89 Other specified disease of esophagus | CPT/HCPCS: 74220 ==

== ENCOUNTER 2021-12-07 08:59 | Outpatient (CLI) | payer OTHER, MEDICAID | END 2021-12-07 09:00 | disposition home or self-care (01) | LOC: BICMAMMO 08:59 | PROVIDERS: ATTEND Student in an Organized Health Care Education/Training Program | DX: Z12.31 Encounter for screening mammogram for malignant neoplasm of breast (principal); Z13.820 Encounter for screening for osteoporosis; M85.851 Other specified disorders of bone density and structure, right thigh; M85.852 Other specified disorders of bone density and structure, left thigh; Z80.3 Family history of malignant neoplasm of breast | CPT/HCPCS: 77063; 77067; 77080 ==

== ENCOUNTER 2023-01-01 07:57 | Outpatient (CLI) | payer OTHER | END 2023-01-01 07:58 | disposition home or self-care (01) | LOC: BICMAMMO 07:57 | PROVIDERS: ATTEND Student in an Organized Health Care Education/Training Program | DX: Z12.31 Encounter for screening mammogram for malignant neoplasm of breast (principal); Z80.3 Family history of malignant neoplasm of breast; Z91.89 Other specified personal risk factors, not elsewhere classified | CPT/HCPCS: 77063; 77067 ==

== ENCOUNTER 2023-03-11 09:50 | Outpatient (CLI) | payer OTHER, MEDICAID | END 2023-03-11 09:51 | disposition home or self-care (01) | LOC: DTY/OP 09:50 | PROVIDERS: ATTEND Specialist | DX: E66.01 Morbid (severe) obesity due to excess calories (principal); E11.40 Type 2 diabetes mellitus with diabetic neuropathy, unspecified | CPT/HCPCS: 97802 ==

== ENCOUNTER 2023-03-13 10:51 | Outpatient (CLI) | payer OTHER, MEDICAID | END 2023-03-13 10:52 | disposition home or self-care (01) | LOC: BICCT 10:51 | PROVIDERS: ATTEND Student in an Organized Health Care Education/Training Program | DX: Z12.2 Encounter for screening for malignant neoplasm of respiratory organs (principal); F17.211 Nicotine dependence, cigarettes, in remission; R91.8 Other nonspecific abnormal finding of lung field | CPT/HCPCS: 71271 ==

== ENCOUNTER 2024-01-29 10:54 | Outpatient (CLI) | payer OTHER, MEDICAID | END 2024-01-29 10:55 | disposition home or self-care (01) | LOC: BICMAMMO 10:54 | PROVIDERS: ATTEND Student in an Organized Health Care Education/Training Program | DX: Z12.31 Encounter for screening mammogram for malignant neoplasm of breast (principal); Z80.3 Family history of malignant neoplasm of breast | CPT/HCPCS: 77063; 77067 ==